=== PATIENT | female | born 1955 | race Caucasian/White ===

== ENCOUNTER 2019-11-09 09:46 | Outpatient (CLI) | payer OTHER, SELFPAY ==
--- NOTE | 2019-11-12 06:29 | WPDPFTINT ---
PFT Interpretation PFT Interpretation: DOS: 11/09/2019 REQUESTING: REASON FOR TESTING: post pulmonary rehab SIX MINUTE WALK This test was conducted per ATS guidelines. The initial saturation was 93% on 3 L/min pulse dose oxygen. The patient walked for 6 minutes with saturation decreasing to 85-86% for most of the walk. She stayed between 86% and 89% for 5 minutes which included part of the recovery time. At the end of recovery, saturation was 95%. Pulse ranged from 63 to 88 beats per minute. She did not stop to rest, completing 800 feet/243.8 meters. IMPRESSION: This post-pulmonary rehab 6 minute walk study desaturation to 85% while wearing 3 L/min pulse dose oxygen. Distance walked was 243 meters, less than expected per age. Clinical correlation is advised. Melanie Pelayo MD
== END 2019-11-09 09:47 | disposition home or self-care (01) ==
PROVIDERS: PCP Family Medicine
DX: J84.9 Interstitial pulmonary disease, unspecified (principal); I27.20 Pulmonary hypertension, unspecified; R09.02 Hypoxemia
CPT/HCPCS: 94618

== ENCOUNTER 2019-12-04 07:44 | Outpatient (CLI) | payer OTHER, SELFPAY ==
[2019-12-04 08:04] LABS: Hematocrit 44.8 % (37.0-47.0); Hemoglobin 14.4 g/dL (12.0-15.0); Mean Corpuscular HGB Conc 32.1 g/dl (32-36); Mean Corpuscular Hemoglobin 30.3 pg (26-34); Mean Corpuscular Volume 94.1 fl (80-100); Mean Platelet Volume 9.4 fl (7.4-10.4); Platelet Count Result 270 k/mm3 (150-375); Red Blood Count 4.76 M/mm3 (4.2-5.4); Red Cell Distribution Width 13.2 % (11.5-14.5); White Blood Count 6.1 K/mm3 (4.5-10.0)
[2019-12-04 08:18] LABS: Alanine Aminotransferase 15 U/L (4-35); Albumin Level 4.2 g/dL (3.5-5.1); Alkaline Phosphatase 86 U/L (38-126); Aspartate Amino Transferase 24 U/L (14-36); Bilirubin,Total 0.6 mg/dL (0.2-1.3); Blood Urea Nitrogen 9 mg/dL (7-17); CRP 0.6 mg/dL (<1.0); Calcium 9.4 mg/dL (8.4-10.2); Carbon Dioxide 31 mmol/L (22-30); Chloride 98 mmol/L (98-107); Estimated Glomerular Filt Rate > 60; Glucose 98 mg/dL (65-105); Potassium 4.4 mmol/L (3.4-5.0); Sodium 141 mmol/L (137-145)
== END 2019-12-04 07:45 | disposition home or self-care (01) ==
PROVIDERS: PCP Family Medicine; Referring Provider Family Medicine; Visit Provider Internal Medicine
DX: J84.9 Interstitial pulmonary disease, unspecified (principal); I27.20 Pulmonary hypertension, unspecified; M05.79 Rheumatoid arthritis with rheumatoid factor of multiple sites without organ or systems involvement
CPT/HCPCS: 36415; 80053; 85027; 86140

== ENCOUNTER 2020-01-18 10:40 | Outpatient (CLI) | payer OTHER, SELFPAY ==
--- NOTE | ~2020-01-18 | CT_ITS ---
EXAMINATION: CT chest wo con DATE: 01/18/2020 11:03 INDICATION: Chronic interstitial lung disease TECHNIQUE: Computed tomography (CT) of the chest was performed without intravenous contrast. The dose -length product (DLP) was 216.13 mGy-cm. Automated exposure control and iterative reconstruction tech [employer] were employed. COMPARISON: 03/07/2019 FINDINGS: Again noted are changes of right upper lobectomy. There are widespread subpleural reticular and groundglass opacities. There has been interval improvement in the left upper lobe. Areas of abdi ycombing are noted on the right. There is no pleural effusion or pneumothorax. No pathologically enla rged thoracic lymph nodes are identified. There is stable cardiomegaly.. There is calcified coronary artery atherosclerosis. There is moderate thoracic spondylosis. Again noted is mild chronic anterior wedging in multiple mid thoracic vertebral bodies. IMPRESSION: 1. Chronic interstitial lung disease in a pattern of usual interstitial pneumonia (UIP), with improve ment in the left upper lobe since the prior examination. Reviewed, dictated and finalized at location B. IMPRESSION: 1. Chronic interstitial lung disease in a pattern of usual interstitial pneumon ia (UIP), with improvement in the left upper lobe since the prior examination.
== END 2020-01-18 10:41 | disposition home or self-care (01) ==
PROVIDERS: PCP Family Medicine; Visit Provider Nurse Practitioner Family
DX: J84.9 Interstitial pulmonary disease, unspecified (principal)
CPT/HCPCS: 71250

== ENCOUNTER 2020-04-30 10:44 | Outpatient (CLI) | payer MEDICARE, SELFPAY ==
[2020-04-30 11:20] VITALS: PULSE 86; O2SAT 95
[2020-04-30 11:22] VITALS: PULSE 88; O2SAT 86
[2020-04-30 11:24] VITALS: O2SAT 87
[2020-04-30 11:26] VITALS: PULSE 88; O2SAT 91
[2020-04-30 11:35] VITALS: PULSE 82; O2SAT 95
--- NOTE | 2020-04-30 15:17 | HOMEO2EVAL ---
Home Oxygen Evaluation RC: Home Oxygen (O2) Evaluation Start: 04/30/20 15:12 Freq: Status: Active Protocol: RPE Activity Type Activity Date Activity User E-Sign Co-Sign Detail Recorded Client Recorded Date Recorded By Document 04/30/20 11:20 NASIR [id number] 04/30/20 15:16 NASIR Document 04/30/20 11:22 NASIR [email or web address] 04/30/20 15:16 NASIR Document 04/30/20 11:24 NASIR [email or web address] 04/30/20 15:16 NASIR Document 04/30/20 11:26 NASIR [email or web address] 04/30/20 15:16 NASIR Document 04/30/20 11:35 NASIR [email or web address] 04/30/20 15:16 NASIR 04/30/20 04/30/20 04/30/20 11:20 11:22 11:24 Home O2 Evaluation Test Phase Resting Exercise Exercise Oxygen Delivery Room Air Room Air Nasal Cannula Oxygen Flow Rate (L/min) 1 Pulse Oximetry (90-100 %) 95 86 L 87 L Pulse Rate (60-100 beats/min) 86 88 Home Oxygen Evaluation Comments Treatment Charges O2 Evaluation 04/30/20 04/30/20 11:26 11:35 Home O2 Evaluation Test Phase Exercise Resting Oxygen Delivery Nasal Cannula Room Air Oxygen Flow Rate (L/min) 2 Pulse Oximetry (90-100 %) 91 95 Pulse Rate (60-100 beats/min) 88 82 Home Oxygen Evaluation Comments PT REQUIRES 2 L O2 WITH ACTIVITY/ EXERTION Treatment Charges
--- NOTE | 2020-04-30 15:17 | PCRCNOTE ---
PT INITIALLY DID HOME O2 EVAL ON HER PORTABLE CONCENTRATOR UNIT THAT ONLY PROVIDES A PULSE DOSE. SHE WALKED FOR 2 MINUTES WITH PULSE DOSE SETTING AT 3 AND DESATS TO 86%. PT WAS THEN CHANGED OVER TO A CONTINUOUS FLOW TANK AT 2L AND STAYED AT 89-91% WHILE WALKING APPROX 4 MINUTES. HOME O2 EVAL WAS CHARTED USING 2L CONTINUOUS FLOW THIS IS THE BETTER OPTION FOR HER. PATIENT IS REQUESTING A DME THAT PROVIDES A PORTABLE CONCENTRATOR THAT PROVIDES A CONTINUOUS FLOW OPTION UP TO 2, THIS IS THE HOME O2 EQUIPMENT THAT SHE IS ACCUSTOMED TO USING.
== END 2020-04-30 10:45 | disposition home or self-care (01) ==
PROVIDERS: PCP Family Medicine; Visit Provider Nurse Practitioner Family
DX: R09.02 Hypoxemia (principal)
CPT/HCPCS: 94618

== ENCOUNTER 2020-05-27 09:00 | Outpatient (CLI) | payer MEDICARE, SELFPAY ==
[2020-05-27 09:23] LABS: Hematocrit 44.3 % (37.0-47.0); Hemoglobin 14.1 g/dL (12.0-15.0); Mean Corpuscular HGB Conc 31.8 g/dl (32-36); Mean Corpuscular Hemoglobin 30.1 pg (26-34); Mean Corpuscular Volume 94.7 fl (80-100); Mean Platelet Volume 9.5 fl (7.4-10.4); Platelet Count Result 276 k/mm3 (150-375); Red Blood Count 4.68 M/mm3 (4.2-5.4); Red Cell Distribution Width 13.4 % (11.5-14.5); White Blood Count 6.4 K/mm3 (4.5-10.0)
[2020-05-27 09:44] LABS: Alanine Aminotransferase 13 U/L (4-35); Albumin Level 4.2 g/dL (3.5-5.1); Alkaline Phosphatase 83 U/L (38-126); Anion Gap 6.8 mmol/L (7-16); Aspartate Amino Transferase 24 U/L (14-36); Bilirubin,Total 0.4 mg/dL (0.2-1.3); Blood Urea Nitrogen 8 mg/dL (7-17); CRP 0.7 mg/dL (<1.0); Carbon Dioxide 33 mmol/L (22-30); Chloride 104 mmol/L (98-107); Estimated Glomerular Filt Rate > 60; Glucose 96 mg/dL (65-105); Potassium 4.8 mmol/L (3.4-5.0); Sodium 139 mmol/L (137-145)
== END 2020-05-27 09:01 | disposition home or self-care (01) ==
LOC: ANHLAB 09:04
PROVIDERS: PCP Family Medicine; Visit Provider Internal Medicine
DX: M05.79 Rheumatoid arthritis with rheumatoid factor of multiple sites without organ or systems involvement (principal); J84.9 Interstitial pulmonary disease, unspecified; I27.20 Pulmonary hypertension, unspecified
CPT/HCPCS: 36415; 80053; 85027; 86140

== ENCOUNTER 2020-06-10 12:26 | Outpatient (CLI) | payer MEDICARE, SELFPAY ==
--- NOTE | 2020-06-11 14:50 | WPDPFTINT ---
PFT Interpretation PFT Interpretation: DOS: [ 06 10 2020] REQUESTING: Dr. Pelayo REASON FOR TESTING: ILD PULMONARY FUNCTION TESTS Results are reproducible and reliable. Spirometry: FEV1 46%, 1.02 L severely decreased. FVC 44% severely decreased. FEV 1% 76% normal. [id number] is 35% severely decreased and this increases by 37% with bronchodilator. Lung volumes: TLC 50% severely reduced. RV/TLC is increased 43% consistent with air trapping. Increased airway resistance. Diffusion: DLCO 35% severely reduced Flow volume loop: Restrictive pattern IMPRESSION: Severe restriction and obstruction. Severe restrictive ventilatory impairment with secondary obstructive process mainly in the small airways with good response to bronchodilator, air trapping, increased airway resistance and severe diffusion impairment. This pattern is consistent with interstitial lung disease and COPD overlap. These test results are very similar to a prior exam on to April 24, 2019. Melanie Pelayo MD
== END 2020-06-10 12:27 | disposition home or self-care (01) ==
PROVIDERS: PCP Family Medicine; Visit Provider Internal Medicine Critical Care Medicine
DX: J84.9 Interstitial pulmonary disease, unspecified (principal); R94.2 Abnormal results of pulmonary function studies
CPT/HCPCS: 94060; 94726; 94729

== ENCOUNTER → 2020-09-02 13:11 | Outpatient (CLI) | payer MEDICARE, SELFPAY ==
--- NOTE | ~2020-09-02 | MM_ITS ---
EXAMINATION: MM screening rylan BI w pietro HISTORY: Screening mammogram TECHNIQUE: Craniocaudal and mediolateral oblique 3-D tomosynthesis images were obtained and synthetic 2-D images were generated. CAD analysis was submitted and interpreted. COMPARISON: 08/22/2019, 02/18/2018, 01/09/2016 BREAST PARENCHYMAL COMPOSITION: The breasts are heterogeneously dense, which may obscure small masses . FINDINGS: Stable bilateral breast masses are again noted, consistent with benign findings. There is n o evidence of suspicious mass, calcification, or architectural distortion to suggest malignancy in ei ther breast. There has been no suspicious interval change. IMPRESSION: 1. No mammographic evidence of malignancy. 2. Recommend routine screening mammography in one year. BI-RADS Category 2: Benign finding(s). Reviewed, dictated and finalized at location A. RGROUND MINE MACHINERY MECHANIC
== END ==
PROVIDERS: PCP Family Medicine; Visit Provider Obstetrics & Gynecology
DX: Z12.31 Encounter for screening mammogram for malignant neoplasm of breast (principal)
CPT/HCPCS: 77063; 77067

== ENCOUNTER 2020-10-31 08:20 | Outpatient (CLI) | payer MEDICARE, SELFPAY ==
[2020-10-31 09:08] LABS: Hematocrit 45.3 % (37.0-47.0); Hemoglobin 14.7 g/dL (12.0-15.0); Mean Corpuscular HGB Conc 32.5 g/dl (32-36); Mean Corpuscular Hemoglobin 30.5 pg (26-34); Mean Platelet Volume 9.6 fl (7.4-10.4); Platelet Count Result 266 k/mm3 (150-375); Red Blood Count 4.82 M/mm3 (4.2-5.4); Red Cell Distribution Width 13.2 % (11.5-14.5); White Blood Count 6.9 K/mm3 (4.5-10.0)
[2020-10-31 09:10] LABS: Add Urine Microscopic? NO; Appearance Urine Clear (Clear); Bilirubin Urine Negative (Negative); Blood Urine Negative (Negative); Color Urine Yellow (Yellow); Glucose Urine UA Negative (Negative); Ketones Urine Negative (Negative); Leukocyte Esterase Ur Negative LEU/UL (NEGATIVE); Nitrate Urine Negative (Negative); Protein Urine Negative (Negative); Specific Grav Ur 1.017 (1.001-1.035); Urobilinogen Urine Negative mg/dL (<2.0)
[2020-10-31 09:26] LABS: Cholesterol 202 mg/dL (0-200); HDL Direct 49 mg/dL; Triglycerides 161 mg/dL (<150)
[2020-10-31 09:29] LABS: Alanine Aminotransferase 11 U/L (4-35); Albumin Level 4.1 g/dL (3.5-5.1); Alkaline Phosphatase 80 U/L (38-126); Anion Gap 4 mmol/L (8-16); Aspartate Amino Transferase 22 U/L (14-36); Bilirubin,Total 0.7 mg/dL (0.2-1.3); Blood Urea Nitrogen 10 mg/dL (7-17); CRP 0.6 mg/dL (<1.0); Calcium 9.3 mg/dL (8.4-10.2); Carbon Dioxide 34 mmol/L (22-30); Chloride 102 mmol/L (98-107); Estimated Glomerular Filt Rate > 60; Glucose 100 mg/dL (65-105); Potassium 4.3 mmol/L (3.4-5.0); Sodium 140 mmol/L (137-145)
[2020-10-31 09:40] LABS: LDL Cholesterol Direct 127 mg/dL
== END 2020-10-31 08:21 | disposition home or self-care (01) ==
PROVIDERS: PCP Family Medicine; Referring Provider Nurse Practitioner Family; Visit Provider Internal Medicine
DX: E78.00 Pure hypercholesterolemia, unspecified (principal); E78.2 Mixed hyperlipidemia; I10 Essential (primary) hypertension; J44.9 Chronic obstructive pulmonary disease, unspecified; M05.79 Rheumatoid arthritis with rheumatoid factor of multiple sites without organ or systems involvement; J84.9 Interstitial pulmonary disease, unspecified; I27.20 Pulmonary hypertension, unspecified
CPT/HCPCS: 36415; 80053; 80061; 81003; 84443; 85027; 86140

== ENCOUNTER 2020-12-08 15:04 | Inpatient (IN) | payer MEDICARE, SELFPAY ==
[2020-12-08] VITALS (9 sets, daily range): BP systolic 127–166; BP diastolic 69–88; PULSE 85–96; RESP 18–30; TEMP 36.4–37.6; O2SAT 81–97; BMI 34.8
--- NOTE | ~2020-12-08 | CT_ITS ---
EXAMINATION: CT chest high resolution wo nc DATE: 12/09/2020 10:38 INDICATION: Interstitial lung disease, shortness of breath TECHNIQUE: Computed tomography (CT) of the chest was performed without intravenous contrast. The dose -length product (DLP) was 334.48 mGy-cm. Automated exposure control and iterative reconstruction tech [employer] were employed. COMPARISON: 01/18/2020 FINDINGS: There are changes of right upper lobectomy. There are widespread subpleural reticular and g roundglass opacities with interval worsening. There is worsened honeycombing in the right lower lobe and worsening bronchiectasis in the left lower lobe. There is no pleural effusion or pneumothorax. Ca rdiomegaly is noted. There is calcified coronary artery atherosclerosis. No pathologically enlarged t horacic lymph nodes are identified. There is moderate thoracic spondylosis. IMPRESSION: 1. Chronic interstitial lung disease in a pattern of usual interstitial pneumonia with worsened subpl eural reticular and groundglass opacities which could reflect worsening interstitial lung disease and /or superimposed acute pneumonia. COVID 19 not excluded. 2. Worsened honeycombing in the right lower lobe and bronchiectasis of the left lower lobe. Reviewed, dictated and finalized at location A. GEMENT SUPERVISOR IMPRESSION: 1. Chronic interstitial lung disease in a pattern of usual interstitial pneumon ia with worsened subpleural reticular and groundglass opacities which could ref lect worsening interstitial lung disease and/or superimposed acute pneumonia. C OVID 19 not excluded. 2. Worsened honeycombing in the right lower lobe and bronchiectasis of the left lower lobe.
--- NOTE | ~2020-12-08 | XR_ITS ---
EXAMINATION: XR chest 1V portable EXAM DATE: 12/08/2020 16:35 INDICATION: Shortness of breath, cough for 10 days. History COPD and hypertension. TECHNIQUE: Portable AP frontal chest x-ray was obtained. Comparison is made to prior examination from 02/19/2019. FINDINGS: There is moderate amount of ill-defined bilateral airspace disease, more pronounced than on previous examination. Some portion of this is chronic interstitial lung disease, could be progressio n of this or superimposed acute infection or edema. There is no pneumothorax suspected. There are no pleural effusions. The cardiomediastinal silhouette is prominent but magnified on this AP technique. There are mild bony degenerative changes. IMPRESSION: Moderate amount of airspace disease with interval progression, could be acute infection or edema on chronic interstitial lung disease. Reviewed, dictated and finalized at location G. RAL LIMOUSINE DRIVER IMPRESSION: Moderate amount of airspace disease with interval progression, cou ld be acute infection or edema on chronic interstitial lung disease.
--- NOTE | 2020-12-08 16:11 | ECG_ITS ---
Measurements Intervals [place] Rate: 94 P: 23 CA: 135 QRS: 23 QRSD: 89 T: 4 QT: 319 QTc: 399 Interpretive Statements SINUS RHYTHM FREQUENT ATRIAL PREMATURE COMPLEXES NONSPECIFIC ST & T-WAVE ABNORMALITY- DIFFUSE LEADS BASELINE ARTIFACT- I, II, III, AVR, AVL, AVF, V3-V6 ABNORMAL ECG Electronically Signed On 12-08-2020 19:01:09 MEDICAL RADIATION TECH by Oni Graf D.O.
--- NOTE | 2020-12-08 16:24 | ED.GENADULT ---
HPI - General Adult General Chief complaint: Upper Respiratory Infection Stated complaint: fever, sinus congestion, low o2 sat Time Seen by Provider: 12/08/20 16:12 Source: patient History of Present Illness HPI narrative: Patient is a 65 y/o female complaining of moderate SOB for 10 days. She also has cough and fever. She states that she initially had nasal congestion and facial pain which resolved after receiving a course of Z-pack from her PCP. She has home O2 which she usually only uses with activity. She states that her pulse ox dropped to 80% while she was at rest this morning and applying O2 increased it to 90%. She was told by her doctor to come to ED for evaluation. Related Data Home Medications Medication Instructions Recorded Confirmed cholecalciferol (vitamin D3) 1,000 unit PO DAILY 08/29/19 12/08/20 methotrexate sodium 7.5 mg PO WEEKLY 08/29/19 12/08/20 metoprolol succinate 25 mg PO DAILY 08/29/19 12/08/20 folic acid 1 mg tablet 1 mg PO DAILY 09/25/19 12/08/20 guaifenesin 600 mg tablet, 600 mg PO DAILY 10/28/20 12/08/20 extended release 12 hr fluticasone propionate [Allergy 1 spray INTRANASAL Q12H PRN 12/08/20 12/08/20 Relief (fluticasone)] montelukast 10 mg PO DAILY 12/08/20 12/08/20 Allergies Allergy/AdvReac Type Severity Reaction Status Date / Time Penicillins Allergy Unknown UNKNOWN Verified 12/08/20 18:59 Review of Systems Constitutional: Constitutional: Denies chills, Denies fever(s), Denies headache(s) and Denies weakness Eyes: Eyes: Denies blurry vision ENT: Denies headache(s) and Denies neck pain Cardiovascular: Cardiovascular: Denies chest pain and Reports dyspnea Respiratory: Respiratory: Reports cough and Reports dyspnea Gastrointestinal: Gastrointestinal: Denies abdominal pain, Denies diarrhea, Denies nausea and Denies vomiting Genitourinary: Genitourinary: Denies hematuria and Denies dysuria Musculoskeletal: Musculoskeletal: Denies back pain and Denies neck pain Neurologic: Denies headache(s) and Denies weakness PMF Past Medical History Medical History Ascending aortic aneurysm Cough Decreased diffusion capacity Essential hypertension History of lung cancer History of tobacco abuse ILD (interstitial lung disease) Pure hypercholesterolemia Restrictive lung disease Family History Family History Sibling Cerebrovascular accident Family history of chronic obstructive pulmonary disease Family history of lung cancer Family history of coronary artery disease Hypertension Family history of diabetes mellitus in first degree relative Family history of malignant melanoma Father Family history of lung cancer Mother Family history of lung cancer Other Family history of congestive heart failure Social History Social History Smoking packs per day: 2 Smoking cigarettes per day: 40.0 Years smoked: 24 Smoking pack-years: 48.00 Smoking status: Former smoker Smoking end date: 10/24/06 Alcohol intake: never Substance use: never Substance use type: does not use Gender identity (if verbalized by the patient): Female Spiritual care concerns: No Exam Const: General: no acute distress and well developed Orientation/consciousness: oriented to person, oriented to place, oriented to time and patient oriented x3 HENMT: Head: normocephalic Ears: external ears normal General nose exam: Normal external nose present Eyes: General: appearance normal, both eyes and all related structures Conjunctivae: conjunctivae normal Neck: Neck: normal visual inspection and full ROM Chest: Chest palpation & inspection: normal inspection of the chest and no tenderness Resp: Effort & Inspection: normal respiratory effort Auscultation: clear to auscultation bilaterally Cardio: Rate: regular rate Rhythm: regular
[2020-12-08 16:33] LABS: Basophils Percent Auto 0.3 % (0.2-1.2); Eosinophils Percent Auto 0.4 % (0-4.4); Hematocrit 46.3 % (37.0-47.0); Hemoglobin 15.2 g/dL (12.0-15.0); Immature Granulocyte Absolute 0.02 K/mm3 (0.00-0.031); Immature Granulocyte Percent A 0.3 % (0-0.5); Lymphocytes Absolute Auto 1.33 K/mm3 (0.9-3.2); Lymphocytes Percent Auto 16.6 % (18.3-44.2); Mean Corpuscular HGB Conc 32.8 g/dl (32-36); Mean Corpuscular Hemoglobin 29.8 pg (26-34); Mean Corpuscular Volume 90.8 fl (80-100); Mean Platelet Volume 9.5 fl (7.4-10.4); Monocytes Absolute Auto 0.6 K/mm3 (0.1-0.6); Monocytes Percent Auto 7.5 % (2.6-8.5); Neutrophils Percent Auto 74.9 % (45.5-73.1); Platelet Count Result 206 k/mm3 (150-375); Red Cell Distribution Width 13.1 % (11.5-14.5)
[2020-12-08 16:37] LABS: Alveolar/Arterial O2 Gradient 94.9 mmHg; Base Excess ABG -1.8 mEq/l (+/-2.0); Fractional Inspired Oxygen 28 %; HCO3 ABG 22.7 mEq/l (22.0-26.0); Modified Allen's Test Pass; Oxygen Content ABG 19.7 %vol (16.0-22.0); Oxygen Saturation ABG 90.9 % (95.0-100.0); Oxyhemoglobin 91.1 % THb (90.0-100.0); PCO2 ABG 38.1 mmHg (35.0-45.0); PO2 ABG 59.8 mmHg (80.0-100.0); PO2 FiO2 Ratio Arterial Blood 2.14 %; Site Drawn RIGHT RADIAL; Total Hemoglobin 15.4 g/dL (12.0-18.0); pH ABG 7.393 (7.350-7.450)
[2020-12-08 16:38] LABS: Device NASAL CANNULA
[2020-12-08 16:49] LABS: Anion Gap 3 mmol/L (8-16); Blood Urea Nitrogen 9 mg/dL (7-17); Calcium 8.8 mg/dL (8.4-10.2); Carbon Dioxide 35 mmol/L (22-30); Chloride 99 mmol/L (98-107); Estimated Glomerular Filt Rate > 60; Glucose 113 mg/dL (65-105); Lactic Acid Reflex 1.4 mmol/L (0.7-2.1); Potassium 3.8 mmol/L (3.4-5.0); Sodium 137 mmol/L (137-145)
[2020-12-08] MEDS: DEXAMETHASONE SOD PHOS INJ 4 MG/ML VIAL 6 MG IV PUSH (17:12)
--- NOTE | 2020-12-08 18:46 | ADMGEN ---
This patient, Rachana Palomino, was admitted to [facility] Surg Room 303-01. Patient/family oriented to hospital policies and general routines including ID bracelet, bed and alarms, visiting hours, pain management, procedures, bathroom and other care routines, personal items, smoking policy, room service/diet, and visiting hours. Information on how to activate the Rapid Response Team has been discussed. Patient/Family are encouraged to report perceived risks to care and to ask questions if they do not understand what they are told or what they should do.
--- NOTE | 2020-12-08 23:05 | PCRCNOTE ---
PT WEARS CPAP AT HOME BUT DOES NOT WANT TO USE HOSPITAL EQUIPMENT AT THIS TIME. PT AWARE THAT SHE CAN CALL AT ANYTIME IF SHE CHANGES HER MIND.
--- NOTE | 2020-12-08 23:27 | PM.IMHP ---
H&P: HPI History of Present Illness Date/Time: 12/08/20 23:27 Chief Complaint: worsening shortness of breath Narrative: This is a 65 year old female with known Chronic respiratory failure on 2L of oxygen at home at all times, Chronic Interstitial Lung Disease, and HTN who presented to the hospital earlier today with a complaint of worsening exertional shortness of breath today. This morning she experienced a low pulse ox of 80% at rest. She states that she initially believed that she had a sinus infection about 10 days ago with facial pain, congestion and cough. She was treated with a full Z-pack by her Bowling Alley Attendant. The patient has not had any fevers, chills, chest pain, abdominal pain, wheezing, dysuria, hematuria, nausea, vomiting, diarrhea, or rectal bleeding. The patient was referred to the ER by her PCP. The patient was evaluated in the ER and placed on 4L of oxygen via NC. CXR demonstrated a moderate amount of airspace disease with interval progression. The patient has not had COVID-19 this year. She does report that 4 people at her temple tested positive for COVID-19 this week. The patient was swabbed for COVID-19 and admitted to the hospital. Review of Systems Review of Systems: All systems reviewed & are unremarkable except as noted in HPI and below PMFSH Past Medical History Medical History Ascending aortic aneurysm Cough Decreased diffusion capacity Essential hypertension History of lung cancer History of tobacco abuse ILD (interstitial lung disease) Pure hypercholesterolemia Restrictive lung disease Family History Family History Sibling Cerebrovascular accident Family history of chronic obstructive pulmonary disease Family history of lung cancer Family history of coronary artery disease Hypertension Family history of diabetes mellitus in first degree relative Family history of malignant melanoma Father Family history of lung cancer Mother Family history of lung cancer Other Family history of congestive heart failure Social History Social History Smoking packs per day: 2 Smoking cigarettes per day: 40.0 Years smoked: 24 Smoking pack-years: 48.00 Smoking status: Former smoker Smoking end date: 10/24/06 Alcohol intake: never Substance use: never Substance use type: does not use Gender identity (if verbalized by the patient): Female Spiritual care concerns: No Meds Home Medications and Allergies Home Medications Medication Instructions Recorded Confirmed Type cholecalciferol (vitamin D3) 1,000 unit PO DAILY 08/29/19 12/08/20 History methotrexate sodium 7.5 mg PO WEEKLY 08/29/19 12/08/20 History metoprolol succinate 25 mg PO DAILY 08/29/19 12/08/20 History folic acid 1 mg tablet 1 mg PO DAILY 09/25/19 12/08/20 History ipratropium 0.5 mg-albuterol 3 mg See Rx Instructions .ROUTE 09/17/20 12/08/20 Rx (2.5 mg base)/3 mL nebulization .COMPLEX PRN #270 ml soln amlodipine 5 mg tablet 5 mg PO DAILY #90 tablet 10/07/20 12/08/20 Rx guaifenesin 600 mg tablet, 600 mg PO DAILY 10/28/20 12/08/20 History extended release 12 hr azithromycin 250 mg tablet See Rx Instructions PO .COMPLEX #6 12/03/20 12/08/20 Rx tablet fluticasone propionate [Allergy 1 spray INTRANASAL Q12H PRN 12/08/20 12/08/20 History Relief (fluticasone)] montelukast 10 mg PO DAILY 12/08/20 12/08/20 History Allergies Allergy/AdvReac Type Severity Reaction Status Date / Time Penicillins Allergy Unknown UNKNOWN Verified 12/08/20 18:59 Vital Signs Vital Signs - 24 hr 12/08/20 15:42 12/08/20 16:13 12/08/20 17:10 Temperature 37.6 C Pulse Rate 94 96 92 Respiratory Rate 20 25 H 30 H Blood Pressure 145/71 H 166/79 H 163/88 H Pulse Oximetry 81 L 88 L 91 12/08/20 17:45 12/08/20 17:46 12/08/20 18:23 Temperature Puls
[2020-12-09] VITALS (11 sets, daily range): BP systolic 124–161; BP diastolic 70–86; PULSE 57–100; RESP 18–20; TEMP 36–37; O2SAT 90–97
[2020-12-09] MEDS: FOLIC ACID 1 MG TABLET PO ×2 (00:27→08:54)
[2020-12-09 06:11] LABS: Hematocrit 45.2 % (37.0-47.0); Hemoglobin 14.8 g/dL (12.0-15.0); Mean Corpuscular HGB Conc 32.7 g/dl (32-36); Mean Corpuscular Hemoglobin 29.6 pg (26-34); Mean Corpuscular Volume 90.4 fl (80-100); Mean Platelet Volume 9.7 fl (7.4-10.4); Platelet Count Result 201 k/mm3 (150-375); Red Cell Distribution Width 12.8 % (11.5-14.5)
[2020-12-09 06:42] LABS: Anion Gap 4 mmol/L (8-16); Blood Urea Nitrogen 12 mg/dL (7-17); Calcium 9.2 mg/dL (8.4-10.2); Carbon Dioxide 34 mmol/L (22-30); Chloride 101 mmol/L (98-107); Estimated CRCL calculation 104 ml/min; Estimated Glomerular Filt Rate > 60; Glucose 152 mg/dL (65-105); Potassium 4.3 mmol/L (3.4-5.0); Sodium 139 mmol/L (137-145)
[2020-12-09 06:44] LABS: Atypical Lymphocytes Present; Basophils Absolute Manual 0.03 K/mm3 (0.0-0.1); Basophils Percent Manual 1 % (0-1); Lymphocytes Absolute Manual 0.66 K/mm3 (1.1-4.5); Monocytes Absolute Manual 0.24 K/mm3 (0.1-0.90); Monocytes Percent Manual 8 % (3-9); Neutrophils Percent Manual 69 % (46-73); Platelet Estimate Adequate (Adequate); Smudge Cells PRESENT; Total Cells Counted 100
[2020-12-09 07:36] LABS: Alanine Aminotransferase 14 U/L (4-35); Alkaline Phosphatase 67 U/L (38-126); Aspartate Amino Transferase 54 U/L (14-36); CRP 4.4 mg/dL (<1.0); Lactate Dehydrogenase 697 U/L (313-618)
[2020-12-09 07:43] LABS: Erythrocyte Sedimentation Rate 33 mm/hr (0-20)
[2020-12-09] MEDS: LEVALBUTEROL HFA (*SP) 15 GM INHALER 2 PUFF INHALATION ×3 (08:29→20:39)
[2020-12-09] MEDS: amLODIPine BESYLATE 5 MG TABLET PO (08:53)
[2020-12-09] MEDS: guaiFENesin 12 HR 600 MG TABCR PO (08:54)
[2020-12-09] MEDS: CHOLECALCIFEROL 1,000 UNITS TABLET 1000 UNITS PO (08:54)
[2020-12-09] MEDS: METOPROLOL SUCCINATE EXT REL 25 MG TABCR PO (08:55)
[2020-12-09] MEDS: ENOXAPARIN 40 MG/0.4 ML SYRINGE SUB-Q (08:56)
[2020-12-09] MEDS: MONTELUKAST SODIUM 10 MG TABLET PO (08:56)
[2020-12-09] MEDS: DEXAMETHASONE SOD PHOS INJ 4 MG/ML VIAL 6 MG IV PUSH (08:57)
--- NOTE | 2020-12-09 12:33 | PM.CNPUL ---
Assessment and Plan Assessment and plan (1) ILD (interstitial lung disease): Code(s): J84.9 - Interstitial pulmonary disease, unspecified Status: Acute Assessment and Plan: - likely due to her rheumatoid arthritis. I do not see significant signs of COVID pneumonia at this stage. If SARS-CoV-2 is negative she can be discharged home with 3 L of oxygen per nasal cannula. - Would consider discontinuing dexamethasone for the time being and waiting for the results of her COVID test. She has a history of significant osteoporosis and prior hip fractures. (2) Chronic hypoxemic respiratory failure: Code(s): J96.11 - Chronic respiratory failure with hypoxia Status: Acute History of Present Illness History of Present Illness Consult date: 12/09/20 Chief complaint: acute hypoxic respiratory failure Narrative: This is a very pleasant 65-year-old female who was admitted yesterday with slightly increased shortness of breath and hypoxia. She is normally on 3 L of oxygen at home due to RA associated interstitial lung disease and felt a little bit more short of breath yesterday and presented to the emergency department where her O2 saturations were in the 80s without oxygen. She was placed on 2 L nasal cannula and oxygenation promptly went up to 92% according to the ER physician. Over the past 11 days she complained of some sinus congestion associated with pressure behind her left cheek bone and clear drainage from her nasal passages but no headaches, no fever, no night sweats, no loss of taste or smell And no productive cough. She was prescribed azithromycin for 5 days for a possible sinus infection and she said her sinus symptoms improved dramatically with that. Since being admitted yesterday there has been no significant change in her symptoms she feels well and is ready to go home. A chest x-ray showed bilateral interstitial and airspace opacities which may be all her interstitial lung disease. When I reviewed her CT scan from this admission with her CT scan from December 2019 there is very little if any difference she does have bibasilar honeycombing but also ground-glass opacities throughout the upper and lower lobes although more predominant in the lower lobes. The pattern is not subpleural exclusively and is deep into the parenchyma. Although there are slight increases in the ground-glass opacities in the left upper lobe this may be due to a slight technique difference in the CT scan as this one was a high-resolution and the one last year was not her ILD is thought to be due to rheumatoid arthritis although she says that her rheumatoid is well controlled with methotrexate 7.5 mg weekly which she takes on Sundays. Although methotrexate induced lung injury is possible it usually presents with an acute pneumonitis rather than pulmonary fibrosis and is not likely the culprit here. Given her constellation of findings in relative stability of chest imaging it is less likely that she has COVID induced pneumonia although her SARS-CoV-2 is pending. Of note she was exposed to some orthodox members who tested positive for COVID. Although at orthodox she admits to wearing a mask and social distancing. Review of Systems Review of Systems: All systems reviewed & are unremarkable except as noted in HPI and below PMFSH Past Medical History Medical History Ascending aortic aneurysm Cough Decreased diffusion capacity Essential hypertension History of lung cancer History of tobacco abuse ILD (interstitial lung disease) Pure hypercholesterolemia Restrictive lung disease Family History Family History Sibling Cerebrovascular accident Family history of chronic obstructive pulmonary disease Family history of lung cancer Family history of coronary artery disease Hypertension Family history of diabetes mellitus in first degree re
[2020-12-09 13:56] LABS: SARS-CoV-2 RNA PCR Positive
--- NOTE | 2020-12-09 15:33 | PM.IMPN ---
Progress Note: A&P Assessment and Plan (1) COVID-19: Code(s): U07.1 - COVID-19 Status: Acute Assessment and Plan: Patient had known exposure to COVID-19 to her taoist. She developed symptoms of nasal congestion November 28, 2020. She was feeling better after receiving a Z-Tom from her logistician. She then noticed worsening dyspnea on exertion and hypoxia while at home and then was told that multiple people at her charge had tested positive for COVID. Here she has been on 4 L via nasal cannula (chronically on 2 L at rest and 3 L with exertion at home) COVID test came back positive today to 12/09/2020 Pulmonology evaluated the patient and appreciate the recommendations She was started on IV dexamethasone on arrival and Pulmonology discontinued this because he did not believe it was COVID-19. Now that the results are positive for COVID will reassess pulmonology is recommendations, pending phone call. Continue albuterol inhaler, incentive spirometer Will continue on telemetry and continuous pulse ox due to hypoxia with exertion. Elevated ESR, CRP, Leukopenia, Slightly elevated AST, LDH due to COVID Continue monitoring. Conservative management. (2) Acute respiratory failure with hypoxia: Code(s): J96.01 - Acute respiratory failure with hypoxia Status: Acute Assessment and Plan: Acute on chronic respiratory failure. Baseline 2-3 L via nasal cannula. Acute worsening hypoxia is likely secondary to COVID-19 pneumonia vs COPD exacerbation vs bacterial pneumonia. The patient has already had a full course of azithromycin and has only worsened. Currently still on 4 L via nasal cannula and having hypoxia episodes with exertion Continue continuous pulse ox Continue supplementary oxygen. Pulmonology has been consulted. Appreciate Pulmonology input. (3) ILD (interstitial lung disease): Code(s): J84.9 - Interstitial pulmonary disease, unspecified Status: Acute Assessment and Plan: Continue bronchodilators and steroid therapy. Pulmonology has been consulted by ER provider. Appreciate Pulmonology input. (4) COPD (chronic obstructive pulmonary disease): Qualifiers: COPD type: unspecified COPD Qualified Code(s): J44.9 - Chronic obstructive pulmonary disease, unspecified Code(s): J44.9 - Chronic obstructive pulmonary disease, unspecified Status: Chronic Assessment and Plan: Continue bronchodilators and respiratory therapy. (5) Essential hypertension: Code(s): I10 - Essential (primary) hypertension Status: Acute Assessment and Plan: Blood pressure is slightly elevated 155/86 this morning. Monitor blood pressure. Continue amlodipine and metoprolol. (6) Rheumatoid arthritis: Qualifiers: Rheumatoid arthritis location: unspecified site Rheumatoid factor presence: with rheumatoid factor Qualified Code(s): M05.9 - Rheumatoid arthritis with rheumatoid factor, unspecified Code(s): M06.9 - Rheumatoid arthritis, unspecified Status: Chronic Assessment and Plan: Continue weekly methotrexate if the patient is still here next Tuesday. Time Spent With Patient Time with patient: 25 - 35 minutes Subjective Date/time seen: 12/09/20 15:33 Interval history: Date of service 12/09/2020: Patient reports continued nasal congestion, and some worsening shortness of breath with exertion. She is on 2 L of oxygen at home, 3 with exertion and currently she is on 4 L. she denies much change to her cough. She denies any fevers, chills, nausea, vomiting, abdominal pain, diarrhea, leg swelling, calf pain or any other symptoms at this time. Review of
[2020-12-09] MEDS: SALINE 0.65% NAS SOLN 44 ML BTL 1 SPRAY NASAL (18:00)
[2020-12-09] MEDS: SODIUM CHLORIDE NASAL GEL 14.1 GM 1 APPLIC NASAL (20:39)
[2020-12-09] MEDS: FLUTICASONE PROPIONATE 0.05% NA SPR 16 GM BTL (*BKC) 1 SPRAY NASAL (22:10)
[2020-12-10] VITALS (10 sets, daily range): BP systolic 124–145; BP diastolic 57–80; PULSE 55–95; RESP 16–20; TEMP 36–36.6; O2SAT 90–99
[2020-12-10] MEDS: LEVALBUTEROL HFA (*SP) 15 GM INHALER 2 PUFF INHALATION ×4 (03:00→20:59)
[2020-12-10] MEDS: MONTELUKAST SODIUM 10 MG TABLET PO (08:16)
[2020-12-10] MEDS: CHOLECALCIFEROL 1,000 UNITS TABLET 1000 UNITS PO (08:16)
[2020-12-10] MEDS: guaiFENesin 12 HR 600 MG TABCR PO (08:16)
[2020-12-10] MEDS: DEXAMETHASONE 2 MG TABLET 6 MG PO (08:16)
[2020-12-10] MEDS: amLODIPine BESYLATE 5 MG TABLET PO (08:16)
[2020-12-10] MEDS: ENOXAPARIN 40 MG/0.4 ML SYRINGE SUB-Q (08:16)
[2020-12-10] MEDS: FOLIC ACID 1 MG TABLET PO (08:16)
[2020-12-10] MEDS: METOPROLOL SUCCINATE EXT REL 25 MG TABCR PO (08:21)
--- NOTE | 2020-12-10 12:43 | PM.PNPUL ---
Progress Note: A&P Assessment and Plan (1) COVID-19: Code(s): U07.1 - COVID-19 Status: Acute Assessment and Plan: Her symptoms are very mild and I believe dexamethasone alone at this stage should be sufficient at 6 mg p.o. daily for 10 days. (2) Chronic hypoxemic respiratory failure: Code(s): J96.11 - Chronic respiratory failure with hypoxia Status: Acute Assessment and Plan: This is likely due to her underlying interstitial lung disease related to rheumatoid arthritis and has likely been progressing slowly. (3) Acute respiratory failure with hypoxia: Code(s): J96.01 - Acute respiratory failure with hypoxia Status: Acute Assessment and Plan: Continue titrating oxygen to maintain saturations of 88% or better. She will need a new home oxygen assessment prior to discharge and she may very well require higher doses of oxygen then she was previously used to. (4) ILD (interstitial lung disease): Code(s): J84.9 - Interstitial pulmonary disease, unspecified Status: Acute (5) Rheumatoid arthritis: Qualifiers: Rheumatoid arthritis location: unspecified site Rheumatoid factor presence: with rheumatoid factor Qualified Code(s): M05.9 - Rheumatoid arthritis with rheumatoid factor, unspecified Code(s): M06.9 - Rheumatoid arthritis, unspecified Status: Chronic Assessment and Plan: I would recommend holding her methotrexate for now and this can be restarted on December 21, 2020 (6) COPD (chronic obstructive pulmonary disease): Qualifiers: COPD type: unspecified COPD Qualified Code(s): J44.9 - Chronic obstructive pulmonary disease, unspecified Code(s): J44.9 - Chronic obstructive pulmonary disease, unspecified Status: Chronic Assessment and Plan: She likely has some obstructive airway disease given her long smoking history and clinical response to bronchodilators. Will start her on Symbicort 160/4.5 mcg 2 puffs q.12 hours with a spacer device. Continue as needed albuterol q.4 hours. Subjective Date/time seen: 12/10/20 12:43 Interval history: Her SARS-CoV-2 Came back positive yesterday. I still believe that the majority of her symptoms are due to her underlying interstitial lung disease related to rheumatoid arthritis. She may also have some underlying obstructive airway disease given her significant smoking history. This is very difficult to curing pickling packer on pulmonary function test when someone has a restrictive lung disease. She does admit that her O2 saturations dropped to about 80% on exertion for the past year to year and a half. She feels well today but she is a bit concerned that she is requiring more oxygen now that she has at home. She is currently on 4 L and she is normally on 2 L at home but it is difficult to know whether she was under oxygenating at home even prior to her admission. Review of Systems Review of Systems: All systems reviewed & are unremarkable except as noted in HPI and below Exam Const: General: cooperative, healthy appearing, comfortable, no acute distress, well developed, alert, awake and Physically active HENMT: Head: normal to inspection, normocephalic and atraumatic Eyes: General: appearance normal, both eyes and all related structures Neck: Neck: trachea midline and supple Resp: Effort & Inspection: normal respiratory effort and able to speak in complete sentences Auscultation: crackles and diminished lung sounds GI: Inspection: normal to inspection Auscultation: normal bowel sounds Skin: General skin exam: normal color and no rashes or lesions noted Neuro: General: oriented to person and oriented to place Cognition (Neuro): normal cognition Speech: normal speech Extrem: General: normal to inspection and no clubbing, cyanosis or edema Psych: Appearance: grossly normal and well kempt Mental Status: mental status grossly normal Objective Data Vital Sig
--- NOTE | 2020-12-10 15:31 | PM.IMPN ---
Progress Note: A&P Assessment and Plan (1) COVID-19: Code(s): U07.1 - COVID-19 Status: Acute Assessment and Plan: Patient had known exposure to COVID-19 to her rastafarian. She developed symptoms of nasal congestion November 28, 2020. She was feeling better after receiving a Z-Tom from her mechanic senior. She then noticed worsening dyspnea on exertion and hypoxia while at home and then was told that multiple people at her charge had tested positive for COVID. Here she has been on 4 L via nasal cannula (chronically on 2 L at rest and 3 L with exertion at home) COVID test came back positive today to 12/09/2020 Pulmonology evaluated the patient and appreciate the recommendations Continue IV dexamethasone patient is outside of the window for Remdesivir Continue albuterol inhalers, incentive spirometer Talked to the mechanic senior who recommends to continue monitoring her for 1-2 more days to ensure her respiratory status is not become worse due to COVID Continuous pulse ox due to hypoxia with exertion. Will discontinue the telemetry portion Elevated ESR, CRP, Leukopenia, Slightly elevated AST, LDH due to COVID Continue monitoring. Conservative management. (2) Acute respiratory failure with hypoxia: Code(s): J96.01 - Acute respiratory failure with hypoxia Status: Acute Assessment and Plan: Acute on chronic respiratory failure. Baseline 2-3 L via nasal cannula. Acute worsening hypoxia is likely secondary to COVID-19 pneumonia vs COPD exacerbation vs bacterial pneumonia. The patient has already had a full course of azithromycin and has only worsened. Currently still on 4 L via nasal cannula and having hypoxia episodes with exertion Continue continuous pulse ox Continue supplementary oxygen. Pulmonology has been consulted. Appreciate Pulmonology input. (3) ILD (interstitial lung disease): Code(s): J84.9 - Interstitial pulmonary disease, unspecified Status: Acute Assessment and Plan: Continue bronchodilators and steroid therapy. Pulmonology has been consulted by ER provider. Appreciate Pulmonology input. (4) COPD (chronic obstructive pulmonary disease): Qualifiers: COPD type: unspecified COPD Qualified Code(s): J44.9 - Chronic obstructive pulmonary disease, unspecified Code(s): J44.9 - Chronic obstructive pulmonary disease, unspecified Status: Chronic Assessment and Plan: Continue bronchodilators and respiratory therapy. (5) Essential hypertension: Code(s): I10 - Essential (primary) hypertension Status: Acute Assessment and Plan: Blood pressure stable at 135/61 this morning. Monitor blood pressure. Continue amlodipine and metoprolol. (6) Rheumatoid arthritis: Qualifiers: Rheumatoid arthritis location: unspecified site Rheumatoid factor presence: with rheumatoid factor Qualified Code(s): M05.9 - Rheumatoid arthritis with rheumatoid factor, unspecified Code(s): M06.9 - Rheumatoid arthritis, unspecified Status: Chronic Assessment and Plan: Continue weekly methotrexate if the patient is still here next Tuesday. Time Spent With Patient Time with patient: 25 - 35 minutes Subjective Date/time seen: 12/10/20 15:31 Interval history: Date of service 12/10/2020: She reports feeling tired today, but she did a lot, walked with PT/OT, took a bath, sitting up in the chair and now she is about to take a nap. At rest her breathing is stable, but with any exertion she desats. She has been coughing and has clear sputum production. She still has some nasal congestion and sinus pressure, but everything is clear when she blows her no
[2020-12-10] MEDS: FLUTICASONE PROPIONATE 0.05% NA SPR 16 GM BTL (*BKC) 1 SPRAY NASAL (20:59)
[2020-12-10] MEDS: SODIUM CHLORIDE NASAL GEL 14.1 GM 1 APPLIC NASAL (20:59)
[2020-12-11] VITALS (18 sets, daily range): BP systolic 118–158; BP diastolic 55–82; PULSE 54–92; RESP 18–20; TEMP 36.1–36.7; O2SAT 84–99
[2020-12-11] MEDS: LEVALBUTEROL HFA (*SP) 15 GM INHALER 2 PUFF INHALATION ×4 (03:27→22:05)
[2020-12-11 06:26] LABS: Hemoglobin 12.9 g/dL (12.0-15.0); Mean Corpuscular HGB Conc 32.3 g/dl (32-36); Mean Corpuscular Hemoglobin 29.4 pg (26-34); Mean Corpuscular Volume 91.1 fl (80-100); Mean Platelet Volume 10.2 fl (7.4-10.4); Platelet Count Result 243 k/mm3 (150-375); Red Blood Count 4.39 M/mm3 (4.2-5.4); Red Cell Distribution Width 12.8 % (11.5-14.5); White Blood Count 8.7 K/mm3 (4.5-10.0)
[2020-12-11 06:47] LABS: Alanine Aminotransferase 13 U/L (4-35); Albumin Level 3.5 g/dL (3.5-5.1); Alkaline Phosphatase 57 U/L (38-126); Anion Gap 0 mmol/L (8-16); Aspartate Amino Transferase 24 U/L (14-36); Bilirubin,Total 0.4 mg/dL (0.2-1.3); Blood Urea Nitrogen 16 mg/dL (7-17); CRP 1.3 mg/dL (<1.0); Calcium 8.9 mg/dL (8.4-10.2); Carbon Dioxide 38 mmol/L (22-30); Chloride 99 mmol/L (98-107); Estimated CRCL calculation 88 ml/min; Estimated Glomerular Filt Rate > 60; Glucose 110 mg/dL (65-105); Lactate Dehydrogenase 572 U/L (313-618); Potassium 4.3 mmol/L (3.4-5.0); Sodium 137 mmol/L (137-145)
[2020-12-11] MEDS: CHOLECALCIFEROL 1,000 UNITS TABLET 1000 UNITS PO (09:18)
[2020-12-11] MEDS: FOLIC ACID 1 MG TABLET PO (09:18)
[2020-12-11] MEDS: guaiFENesin 12 HR 600 MG TABCR PO (09:18)
[2020-12-11] MEDS: MONTELUKAST SODIUM 10 MG TABLET PO (09:18)
[2020-12-11] MEDS: DEXAMETHASONE 2 MG TABLET 6 MG PO (09:18)
[2020-12-11] MEDS: ENOXAPARIN 40 MG/0.4 ML SYRINGE SUB-Q (09:18)
[2020-12-11] MEDS: amLODIPine BESYLATE 5 MG TABLET PO (09:18)
[2020-12-11] MEDS: METOPROLOL SUCCINATE EXT REL 25 MG TABCR PO (09:19)
--- NOTE | 2020-12-11 10:15 | PM.PNPUL ---
Progress Note: A&P Assessment and Plan (1) COVID-19: Code(s): U07.1 - COVID-19 Status: Acute Assessment and Plan: Her symptoms are very mild and I believe dexamethasone alone at this stage should be sufficient at 6 mg p.o. daily for 10 days. (2) Chronic hypoxemic respiratory failure: Code(s): J96.11 - Chronic respiratory failure with hypoxia Status: Acute Assessment and Plan: This is likely due to her underlying interstitial lung disease related to rheumatoid arthritis and has likely been progressing slowly. (3) Acute respiratory failure with hypoxia: Code(s): J96.01 - Acute respiratory failure with hypoxia Status: Acute Assessment and Plan: Continue titrating oxygen to maintain saturations of 88% or better. She will need a new home oxygen assessment prior to discharge and she may very well require higher doses of oxygen then she was previously used to. (4) ILD (interstitial lung disease): Code(s): J84.9 - Interstitial pulmonary disease, unspecified Status: Acute (5) Rheumatoid arthritis: Qualifiers: Rheumatoid arthritis location: unspecified site Rheumatoid factor presence: with rheumatoid factor Qualified Code(s): M05.9 - Rheumatoid arthritis with rheumatoid factor, unspecified Code(s): M06.9 - Rheumatoid arthritis, unspecified Status: Chronic Assessment and Plan: I would recommend holding her methotrexate for now and this can be restarted on December 21, 2020 (6) COPD (chronic obstructive pulmonary disease): Qualifiers: COPD type: unspecified COPD Qualified Code(s): J44.9 - Chronic obstructive pulmonary disease, unspecified Code(s): J44.9 - Chronic obstructive pulmonary disease, unspecified Status: Chronic Assessment and Plan: She likely has some obstructive airway disease given her long smoking history and clinical response to bronchodilators. continue Symbicort 160/4.5 mcg 2 puffs q.12 hours with a spacer device. Continue as needed albuterol q.4 hours. Subjective Date/time seen: 12/11/20 10:15 Interval history: She is doing well and her oxygenation is maintaining with 2-4 L per nasal cannula. Her appetite is good she is not more short of breath than normal. Yesterday Symbicort was added for the probability of underlying obstructive airway disease. She has mild COVID but I believe the predominance of her symptoms are due to underlying interstitial lung disease. She unfortunately was out of the time window for monoclonal antibody consideration. Review of Systems Review of Systems: All systems reviewed & are unremarkable except as noted in HPI and below Exam Const: General: cooperative, healthy appearing, comfortable, no acute distress, well developed, alert, awake and Physically active HENMT: Head: normal to inspection, normocephalic and atraumatic Eyes: General: appearance normal, both eyes and all related structures Neck: Neck: trachea midline and supple Resp: Effort & Inspection: normal respiratory effort and able to speak in complete sentences Auscultation: crackles and diminished lung sounds GI: Inspection: normal to inspection Auscultation: normal bowel sounds Skin: General skin exam: normal color and no rashes or lesions noted Neuro: General: oriented to person and oriented to place Cognition (Neuro): normal cognition Speech: normal speech Extrem: General: normal to inspection and no clubbing, cyanosis or edema Psych: Appearance: grossly normal and well kempt Mental Status: mental status grossly normal Objective Data Vital Signs Vital Signs: Vital Signs - 24 hr 12/10/20 10:25 12/10/20 12:00 12/10/20 16:00 Temperature 36.3 C L 36.3 C L Pulse Rate 90 73 95 Respiratory Rate 18 16 Blood Pressure 128/64 127/61 Pulse Oximetry 95 96 95 12/10/20 17:00 12/10/20 20:00 12/11/20 00:00 Temperature 36.2 C L 36.6 C Pulse Rate 64 67 Respirato
--- NOTE | 2020-12-11 13:14 | PCRCNOTE ---
Addendum entered by Allison Henry, SSIS SSRS DEVELOPER 12/11/20 14:50: PT WAS ABLE TO WALK FURTHER THIS AFTERNOON AND HER NEEDS INCREASED TO 4 L WITH ACTIVITY Original Note: HOME O2 EVAL COMPLETE, PT'S REQUIREMENTS HAVE NOT CHANGED FROM HOME SETTINGS. ROOM AIR AT REST AND 2 LITERS WITH ACTIVITY. PT. HAS HER HOME CONCENTRATOR HERE AND CHARGED FOR HER DISCHARGE.
--- NOTE | 2020-12-11 14:47 | HOMEO2EVAL ---
Home Oxygen Evaluation RC: Home Oxygen (O2) Evaluation Start: 12/11/20 10:48 Freq: ONCE Status: Active Protocol: RPE Activity Type Activity Date Activity User E-Sign Co-Sign Detail Recorded Client Recorded Date Recorded By Document 12/11/20 12:35 [email or web address] [email or web address] 12/11/20 13:14 DJO Document 12/11/20 12:40 [email or web address] [email or web address] 12/11/20 13:14 DJO Document 12/11/20 12:45 [email or web address] [email or web address] 12/11/20 13:14 DJO Document 12/11/20 12:50 [email or web address] [email or web address] 12/11/20 13:14 DJO Document 12/11/20 13:00 [email or web address] [email or web address] 12/11/20 13:14 DJO Document 12/11/20 13:05 [email or web address] [email or web address] 12/11/20 14:47 DJO Document 12/11/20 13:15 [email or web address] [email or web address] 12/11/20 14:47 DJO 12/11/20 12/11/20 12/11/20 12:35 12:40 12:45 Home O2 Evaluation Test Phase Resting Exercise Exercise Oxygen Delivery Room Air Room Air Nasal Cannula Oxygen Flow Rate (L/min) 1 Pulse Oximetry (90-100 %) 90 84 L 85 L Pulse Rate (60-100 beats/min) 68 77 82 Treatment Charges O2 Evaluation - Inpatient 12/11/20 12/11/20 12/11/20 12:50 13:00 13:05 Home O2 Evaluation Test Phase Exercise Exercise Exercise Oxygen Delivery Nasal Cannula Nasal Cannula Nasal Cannula Oxygen Flow Rate (L/min) 2 3 4 Pulse Oximetry (90-100 %) 87 L 88 L 90 Pulse Rate (60-100 beats/min) 89 90 92 Treatment Charges 12/11/20 13:15 Home O2 Evaluation Test Phase Resting Oxygen Delivery Room Air Oxygen Flow Rate (L/min) Pulse Oximetry (90-100 %) 90 Pulse Rate (60-100 beats/min) 69 Treatment Charges
--- NOTE | 2020-12-11 16:30 | PM.IMPN ---
Progress Note: A&P Assessment and Plan (1) COVID-19: Code(s): U07.1 - COVID-19 Status: Acute Assessment and Plan: Patient had known exposure to COVID-19 to her presybeterian. She developed symptoms of nasal congestion November 28, 2020. She was feeling better after receiving a Z-Tom from her teaching supervisor. She then noticed worsening dyspnea on exertion and hypoxia while at home and then was told that multiple people at her charge had tested positive for COVID. Chronically on 2 L at rest and 3 L with exertion at home- Home oxygen evaluation today stated she should be on room air at rest and 4L with exertion, but looking at her in bed currently having some shortness of breath with just movement and on 2.5L I feel like she would need some oxygen at rest. COVID test came back positive 12/09/2020 Pulmonology evaluated the patient and appreciate the recommendations Continue PO dexamethasone. Patient is outside of the window for Remdesivir Continue albuterol inhalers, incentive spirometer Talked to the teaching supervisor who recommends to continue monitoring her for 1-2 more days to ensure her respiratory status is not become worse due to COVID Will D/C Continuous Pulse Ox and Tele Elevated ESR, CRP, Leukopenia, Slightly elevated AST, LDH due to COVID Continue monitoring. Conservative management. (2) Acute respiratory failure with hypoxia: Code(s): J96.01 - Acute respiratory failure with hypoxia Status: Acute Assessment and Plan: Acute on chronic respiratory failure. Baseline 2-3 L via nasal cannula. Acute worsening hypoxia is likely secondary to COVID-19 pneumonia vs COPD exacerbation vs bacterial pneumonia. The patient has already had a full course of azithromycin and has only worsened. Currently on 2 L via nasal cannula and having hypoxia episodes with exertion Continue continuous pulse ox Continue supplementary oxygen. Pulmonology has been consulted. Appreciate Pulmonology input. (3) ILD (interstitial lung disease): Code(s): J84.9 - Interstitial pulmonary disease, unspecified Status: Acute Assessment and Plan: Continue bronchodilators and steroid therapy. Pulmonology has been consulted by ER provider. Appreciate Pulmonology input. (4) COPD (chronic obstructive pulmonary disease): Qualifiers: COPD type: unspecified COPD Qualified Code(s): J44.9 - Chronic obstructive pulmonary disease, unspecified Code(s): J44.9 - Chronic obstructive pulmonary disease, unspecified Status: Chronic Assessment and Plan: Continue bronchodilators and respiratory therapy. (5) Essential hypertension: Code(s): I10 - Essential (primary) hypertension Status: Acute Assessment and Plan: Blood pressure stable at 135/74 this morning. Monitor blood pressure. Continue amlodipine and metoprolol. (6) Rheumatoid arthritis: Qualifiers: Rheumatoid arthritis location: unspecified site Rheumatoid factor presence: with rheumatoid factor Qualified Code(s): M05.9 - Rheumatoid arthritis with rheumatoid factor, unspecified Code(s): M06.9 - Rheumatoid arthritis, unspecified Status: Chronic Assessment and Plan: Continue weekly methotrexate if the patient is still here next Tuesday. Time Spent With Patient Time with patient: 25 - 35 minutes Subjective Date/time seen: 12/11/20 16:30 Interval history: Date of Service 12/11/20: She is doing well but her oxygen still drops in the 70's with exertion. She is getting a productive cough and her congestion is resolving. She is concerned about going home alone to take care of herself with her oxygen dropping significantly.
[2020-12-11] MEDS: SODIUM CHLORIDE NASAL GEL 14.1 GM 1 APPLIC NASAL (22:05)
[2020-12-12] VITALS (16 sets, daily range): BP systolic 130–151; BP diastolic 66–86; PULSE 58–101; RESP 18; TEMP 36.4–37.1; O2SAT 82–99
[2020-12-12] MEDS: LEVALBUTEROL HFA (*SP) 15 GM INHALER 2 PUFF INHALATION ×4 (03:38→20:38)
[2020-12-12] MEDS: DEXAMETHASONE 2 MG TABLET 6 MG PO (09:27)
[2020-12-12] MEDS: CHOLECALCIFEROL 1,000 UNITS TABLET 1000 UNITS PO (09:27)
[2020-12-12] MEDS: FOLIC ACID 1 MG TABLET PO (09:27)
[2020-12-12] MEDS: ENOXAPARIN 40 MG/0.4 ML SYRINGE SUB-Q (09:27)
[2020-12-12] MEDS: MONTELUKAST SODIUM 10 MG TABLET PO (09:27)
[2020-12-12] MEDS: guaiFENesin 12 HR 600 MG TABCR PO (09:28)
[2020-12-12] MEDS: METOPROLOL SUCCINATE EXT REL 25 MG TABCR PO (09:28)
[2020-12-12] MEDS: amLODIPine BESYLATE 5 MG TABLET PO (09:28)
--- NOTE | 2020-12-12 12:27 | PM.PNPUL ---
Progress Note: A&P Assessment and Plan (1) COVID-19: Code(s): U07.1 - COVID-19 Status: Acute Assessment and Plan: Her symptoms are very mild and I believe dexamethasone alone at this stage should be sufficient at 6 mg p.o. daily for 10 days. (2) Chronic hypoxemic respiratory failure: Code(s): J96.11 - Chronic respiratory failure with hypoxia Status: Acute Assessment and Plan: This is likely due to her underlying interstitial lung disease related to rheumatoid arthritis and has likely been progressing slowly. (3) Acute respiratory failure with hypoxia: Code(s): J96.01 - Acute respiratory failure with hypoxia Status: Acute Assessment and Plan: Continue titrating oxygen to maintain saturations of 88% or better. She will need a new home oxygen assessment prior to discharge and she may very well require higher doses of oxygen then she was previously used to. (4) ILD (interstitial lung disease): Code(s): J84.9 - Interstitial pulmonary disease, unspecified Status: Acute (5) Rheumatoid arthritis: Qualifiers: Rheumatoid arthritis location: unspecified site Rheumatoid factor presence: with rheumatoid factor Qualified Code(s): M05.9 - Rheumatoid arthritis with rheumatoid factor, unspecified Code(s): M06.9 - Rheumatoid arthritis, unspecified Status: Chronic Assessment and Plan: I would recommend holding her methotrexate for now and this can be restarted on December 21, 2020 (6) COPD (chronic obstructive pulmonary disease): Qualifiers: COPD type: unspecified COPD Qualified Code(s): J44.9 - Chronic obstructive pulmonary disease, unspecified Code(s): J44.9 - Chronic obstructive pulmonary disease, unspecified Status: Chronic Assessment and Plan: She likely has some obstructive airway disease given her long smoking history and clinical response to bronchodilators. continue Symbicort 160/4.5 mcg 2 puffs q.12 hours with a spacer device. Continue as needed albuterol q.4 hours. Additional Plan Can be discharged home to finish 10 day course of dexamethasone, continue Symbicort and Ventolin. HRCT of the chest for three months has been ordered and f/u with our pulmonary office in 4-6 weeks. Subjective Date/time seen: 12/12/20 12:27 Interval history: She is feeling much better today and is currently on 2 L oxygen per nasal cannula. From my point of view she can be discharged home and follow up with us in 4-6 weeks Review of Systems Review of Systems: All systems reviewed & are unremarkable except as noted in HPI and below Exam Const: General: cooperative, healthy appearing, comfortable, no acute distress, well developed, alert, awake and Physically active HENMT: Head: normal to inspection, normocephalic and atraumatic Eyes: General: appearance normal, both eyes and all related structures Neck: Neck: trachea midline and supple Resp: Effort & Inspection: normal respiratory effort and able to speak in complete sentences Auscultation: crackles and diminished lung sounds GI: Inspection: normal to inspection Auscultation: normal bowel sounds Skin: General skin exam: normal color and no rashes or lesions noted Neuro: General: oriented to person and oriented to place Cognition (Neuro): normal cognition Speech: normal speech Extrem: General: normal to inspection and no clubbing, cyanosis or edema Psych: Appearance: grossly normal and well kempt Mental Status: mental status grossly normal Objective Data Vital Signs Vital Signs: Vital Signs - 24 hr 12/11/20 12:35 12/11/20 12:40 12/11/20 12:45 Temperature Pulse Rate 68 77 82 Respiratory Rate Blood Pressure Pulse Oximetry 90 84 L 85 L 12/11/20 12:50 12/11/20 13:00 12/11/20 13:05 Temperature Pulse Rate 89 90 92 Respiratory Rate Blood Pressure Pulse Oximetry 87 L 88 L 90 12/11/20 13:15 12/11/20 16:00
--- NOTE | 2020-12-12 15:09 | HOMEO2EVAL ---
Home Oxygen Evaluation RC: Home Oxygen (O2) Evaluation Start: 12/12/20 09:14 Freq: ONCE Status: Active Protocol: RPE Activity Type Activity Date Activity User E-Sign Co-Sign Detail Recorded Client Recorded Date Recorded By Document 12/12/20 14:30 NASIR [email or web address] 12/12/20 15:09 NASIR Document 12/12/20 14:33 NASIR [email or web address] 12/12/20 15:09 NASIR Document 12/12/20 14:35 NASIR [email or web address] 12/12/20 15:09 NASIR Document 12/12/20 14:37 NASIR [email or web address] 12/12/20 15:09 NASIR Document 12/12/20 14:39 NASIR [email or web address] 12/12/20 15:09 NASIR Document 12/12/20 14:42 NASIR [email or web address] 12/12/20 15:09 NASIR Document 12/12/20 14:45 NASIR [email or web address] 12/12/20 15:09 NASIR Document 12/12/20 15:00 [email or web address] [email or web address] 12/12/20 15:09 NASIR 12/12/20 12/12/20 12/12/20 14:30 14:33 14:35 Home O2 Evaluation Test Phase Resting Resting Exercise Oxygen Delivery Room Air Nasal Cannula Nasal Cannula Oxygen Flow Rate (L/min) 2 2 Pulse Oximetry (90-100 %) 87 L 90 82 L Pulse Rate (60-100 beats/min) Home Oxygen Evaluation Comments Treatment Charges O2 Evaluation - Inpatient 12/12/20 12/12/20 12/12/20 14:37 14:39 14:42 Home O2 Evaluation Test Phase Exercise Exercise Exercise Oxygen Delivery Nasal Cannula Nasal Cannula Nasal Cannula Oxygen Flow Rate (L/min) 3 4 5 Pulse Oximetry (90-100 %) 83 L 85 L 87 L Pulse Rate (60-100 beats/min) 101 H Home Oxygen Evaluation Comments PT UP IN ROOM WALKING TO DOOR AND BACK Treatment Charges 12/12/20 12/12/20 14:45 15:00 Home O2 Evaluation Test Phase Exercise Resting Oxygen Delivery Nasal Cannula Nasal Cannula Oxygen Flow Rate (L/min) 6 2 Pulse Oximetry (90-100 %) 90 92 Pulse Rate (60-100 beats/min) 86 Home Oxygen Evaluation Comments PT REQUIRES 2 L AT REST AND 6 L WITH ACTIVITY Treatment Charges
--- NOTE | 2020-12-12 15:10 | PCRCNOTE ---
HOME O2 EVAL COMPLETED. THIS IS THE 3RD EVAL DONE WITH THIS PT. PT STATED THAT PRIOR TO ADMISSION, SHE WAS ON ROOM AIR AT REST, ONLY NEEDING O2 WITH EXERTION. PT FIRST HOME O2 EVAL DIDNT REQUIRES O2 WITH REST. 2ND EVAL INCREASED NEED TO 2 REST AND 4 WITH EXERTION. THIRD EVAL IS 2 REST AND 6 WITH EXERTION. 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 PT WAS SOB. DROPPED TO 87-88 ON 6 L. THIS IS ALOT OF EXERTION, AT HOME I ENCOURAGE HER TO TAKE BREAKS, TURN UP THE O2 PRIOR TO ANY EXERTION. PT IS FAMILIAR WITH O2, SHE IS FAMILIAR WITH TITRATING FOR SOB, SHE HAS A PULSE OXIMETER WITH HER. SHE ALSO HAS A POC WITH HER FOR TRANSPORT HOME. HER DME IS [facility]ARE. PHONE # I HAVE FAXED A NEW EVAL/ORDER/FACE TO FACE NOTES/DEMOGRAPHICS TO THEM TO SHOW INCREASED NEED, THEY WILL BE IN CONTACT WITH HER TO ENSURE ALL HOME O2 EQUIPMENT IS MEETING NEEDS.
--- NOTE | 2020-12-12 15:36 | PM.IMPN ---
Progress Note: A&P Assessment and Plan (1) COVID-19: Code(s): U07.1 - COVID-19 Status: Acute Assessment and Plan: Patient had known exposure to COVID-19 to her tenriism. She developed symptoms of nasal congestion November 28, 2020. She was feeling better after receiving a Z-Tom from her finance and administration manager. She then noticed worsening dyspnea on exertion and hypoxia while at home and then was told that multiple people at her charge had tested positive for COVID. Home O2 eval on 2 L at rest and 6 L with exertion at home COVID test came back positive 12/09/2020- Recommended by Sample Tailor to quarantine for 21 days since symptoms start Pulmonology evaluated the patient and appreciate the recommendations Continue PO dexamethasone for 10 days Continue albuterol inhalers, incentive spirometer Talked to the finance and administration manager who would recommend D/c tomorrow Continue monitoring. Conservative management. (2) Acute respiratory failure with hypoxia: Code(s): J96.01 - Acute respiratory failure with hypoxia Status: Acute Assessment and Plan: Acute on chronic respiratory failure. Baseline 2-3 L via nasal cannula. Acute worsening hypoxia is likely secondary to COVID-19 pneumonia vs COPD exacerbation vs bacterial pneumonia. The patient has already had a full course of azithromycin and has only worsened. Currently on 2 L via nasal cannula and having hypoxia episodes with exertion Continue continuous pulse ox (3) ILD (interstitial lung disease): Code(s): J84.9 - Interstitial pulmonary disease, unspecified Status: Acute Assessment and Plan: Continue bronchodilators and steroid therapy. Pulmonology has been consulted by ER provider. Appreciate Pulmonology input. (4) COPD (chronic obstructive pulmonary disease): Qualifiers: COPD type: unspecified COPD Qualified Code(s): J44.9 - Chronic obstructive pulmonary disease, unspecified Code(s): J44.9 - Chronic obstructive pulmonary disease, unspecified Status: Chronic Assessment and Plan: Continue bronchodilators and respiratory therapy. (5) Essential hypertension: Code(s): I10 - Essential (primary) hypertension Status: Acute Assessment and Plan: Blood pressure stable at 134/66 this morning. Monitor blood pressure. Continue amlodipine and metoprolol. (6) Rheumatoid arthritis: Qualifiers: Rheumatoid arthritis location: unspecified site Rheumatoid factor presence: with rheumatoid factor Qualified Code(s): M05.9 - Rheumatoid arthritis with rheumatoid factor, unspecified Code(s): M06.9 - Rheumatoid arthritis, unspecified Status: Chronic Assessment and Plan: Continue weekly methotrexate if the patient is still here next Tuesday. Subjective Date/time seen: 12/12/20 15:36 Interval history: Date of Service 12/12/20: She is feeling better today. She was able to get a bath with OT and walk with PT. Home oxygen evaluation showed she needs 2 L at rest and 6 with exertion. She did feel comfortable with walking around on 6 L with PT. She still having add deep cough, nasal congestion and when she is able to cough or blow her nose and it is only slightly clear. Otherwise she denies chest pain, fever, chills, nausea, vomiting, diarrhea, abdominal pain, leg swelling, calf pain. Exam Narrative: Exam Narrative: General: 65-year-old woman sitting up in the chair talking on the phone, resting comfortably on 2 L via nasal cannula. In no acute distress. Skin: No jaundice or cyanosis. Good skin turgor. Neck: Full range of motion. Supple. Respiratory: Lungs are clear to auscultation bilaterally. No w
[2020-12-12] MEDS: SODIUM CHLORIDE NASAL GEL 14.1 GM 1 APPLIC NASAL (20:39)
[2020-12-12] MEDS: FLUTICASONE PROPIONATE 0.05% NA SPR 16 GM BTL (*BKC) 2 SPRAY NASAL (22:07)
[2020-12-12] MEDS: SALINE 0.65% NAS SOLN 44 ML BTL 1 SPRAY NASAL (22:07)
[2020-12-13] MEDS: LEVALBUTEROL HFA (*SP) 15 GM INHALER 2 PUFF INHALATION ×2 (02:01→08:39)
[2020-12-13 03:54] VITALS: BP 132/76; PULSE 60; RESP 18; TEMP 37; O2SAT 96
[2020-12-13 08:00] VITALS: BP 142/76; PULSE 58; PULSE 60; RESP 20; TEMP 36.8; O2SAT 93
[2020-12-13] MEDS: DEXAMETHASONE 2 MG TABLET 6 MG PO (08:40)
[2020-12-13] MEDS: ENOXAPARIN 40 MG/0.4 ML SYRINGE SUB-Q (08:40)
[2020-12-13] MEDS: guaiFENesin 12 HR 600 MG TABCR PO (08:40)
[2020-12-13 08:41] VITALS: PULSE 60
[2020-12-13] MEDS: METOPROLOL SUCCINATE EXT REL 25 MG TABCR PO (08:41)
[2020-12-13] MEDS: MONTELUKAST SODIUM 10 MG TABLET PO (08:41)
[2020-12-13] MEDS: CHOLECALCIFEROL 1,000 UNITS TABLET 1000 UNITS PO (08:41)
[2020-12-13] MEDS: amLODIPine BESYLATE 5 MG TABLET PO (08:41)
[2020-12-13] MEDS: FOLIC ACID 1 MG TABLET PO (08:41)
[2020-12-13 12:00] VITALS: BP 135/70; PULSE 63; RESP 20; TEMP 36.7; O2SAT 97
--- NOTE | 2020-12-13 14:01 | PM.PNPUL ---
Progress Note: A&P Assessment and Plan (1) COVID-19: Code(s): U07.1 - COVID-19 Status: Acute Assessment and Plan: Her symptoms are very mild and I believe dexamethasone alone at this stage should be sufficient at 6 mg p.o. daily for 10 days. (2) Chronic hypoxemic respiratory failure: Code(s): J96.11 - Chronic respiratory failure with hypoxia Status: Acute Assessment and Plan: This is likely due to her underlying interstitial lung disease related to rheumatoid arthritis and has likely been progressing slowly. (3) Acute respiratory failure with hypoxia: Code(s): J96.01 - Acute respiratory failure with hypoxia Status: Acute Assessment and Plan: Continue titrating oxygen to maintain saturations of 88% or better. She will need a new home oxygen assessment prior to discharge and she may very well require higher doses of oxygen then she was previously used to. (4) ILD (interstitial lung disease): Code(s): J84.9 - Interstitial pulmonary disease, unspecified Status: Acute (5) Rheumatoid arthritis: Qualifiers: Rheumatoid arthritis location: unspecified site Rheumatoid factor presence: with rheumatoid factor Qualified Code(s): M05.9 - Rheumatoid arthritis with rheumatoid factor, unspecified Code(s): M06.9 - Rheumatoid arthritis, unspecified Status: Chronic Assessment and Plan: I would recommend holding her methotrexate for now and this can be restarted on December 21, 2020 (6) COPD (chronic obstructive pulmonary disease): Qualifiers: COPD type: unspecified COPD Qualified Code(s): J44.9 - Chronic obstructive pulmonary disease, unspecified Code(s): J44.9 - Chronic obstructive pulmonary disease, unspecified Status: Chronic Assessment and Plan: She likely has some obstructive airway disease given her long smoking history and clinical response to bronchodilators. continue Symbicort 160/4.5 mcg 2 puffs q.12 hours with a spacer device. Continue as needed albuterol q.4 hours. Subjective Date/time seen: 12/13/20 14:01 Interval history: She continues to feel better and is ready to be discharged home. Review of Systems Review of Systems: All systems reviewed & are unremarkable except as noted in HPI and below Exam Const: General: cooperative, healthy appearing, comfortable, no acute distress, well developed, alert, awake and Physically active HENMT: Head: normal to inspection, normocephalic and atraumatic Eyes: General: appearance normal, both eyes and all related structures Neck: Neck: trachea midline and supple Resp: Effort & Inspection: normal respiratory effort and able to speak in complete sentences Auscultation: crackles and diminished lung sounds GI: Inspection: normal to inspection Auscultation: normal bowel sounds Skin: General skin exam: normal color and no rashes or lesions noted Neuro: General: oriented to person and oriented to place Cognition (Neuro): normal cognition Speech: normal speech Extrem: General: normal to inspection and no clubbing, cyanosis or edema Psych: Appearance: grossly normal and well kempt Mental Status: mental status grossly normal Objective Data Vital Signs Vital Signs: Vital Signs - 24 hr 12/12/20 14:30 12/12/20 14:33 12/12/20 14:35 Temperature Pulse Rate Respiratory Rate Blood Pressure Pulse Oximetry 87 L 90 82 L 12/12/20 14:37 12/12/20 14:39 12/12/20 14:42 Temperature Pulse Rate 101 H Respiratory Rate Blood Pressure Pulse Oximetry 83 L 85 L 87 L 12/12/20 14:45 12/12/20 15:00 12/12/20 16:00 Temperature 36.7 C Pulse Rate 86 63 Respiratory Rate 18 Blood Pressure 132/71 Pulse Oximetry 90 92 93 12/12/20 16:48 12/12/20 20:00 12/12/20 23:54 Temperature 37.1 C 37.1 C Pulse Rate 70 72 59 L Respiratory Rate 18 18 18 Blood Pressure 151/74 H 131/76 Pulse Oximetry 99 93 96 12/13/20
--- NOTE | 2020-12-13 15:50 | PM.DS ---
DS: Admitting Diagnosis Admitting Diagnosis Admitting Diagnosis: SOB DS: Discharge Diagnosis Discharge Diagnosis (1) COVID-19: Code(s): U07.1 - COVID-19 Status: Acute Assessment and Plan: Patient had known exposure to COVID-19 to her jewish. She developed symptoms of nasal congestion November 28, 2020. She was feeling better after receiving a Z-Tom from her literary writer. She then noticed worsening dyspnea on exertion and hypoxia while at home and then was told that multiple people at her charge had tested positive for COVID. Home O2 eval on 2 L at rest and 6 L with exertion at home COVID test came back positive 12/09/2020- Recommended by Rivet Sorter to quarantine for 21 days since symptoms start Continue PO dexamethasone for 10 days Continue albuterol inhalers, incentive spirometer *It was confirmed that her home oxygen concentrator is continuous oxygen and not a pulse. If she has any issues or concerns she can always call our hospital with any issues after discharge. (2) Acute respiratory failure with hypoxia: Code(s): J96.01 - Acute respiratory failure with hypoxia Status: Acute Assessment and Plan: Acute on chronic respiratory failure. Baseline 2-3 L via nasal cannula. Acute worsening hypoxia is likely secondary to COVID-19 pneumonia vs COPD exacerbation vs bacterial pneumonia. The patient has already had a full course of azithromycin and has only worsened. Currently on 2 L via nasal cannula and doing better on 6 L with exertion (3) ILD (interstitial lung disease): Code(s): J84.9 - Interstitial pulmonary disease, unspecified Status: Acute Assessment and Plan: Continue bronchodilators and steroid therapy. Pulmonology has been consulted by ER provider. Appreciate Pulmonology input. (4) COPD (chronic obstructive pulmonary disease): Qualifiers: COPD type: unspecified COPD Qualified Code(s): J44.9 - Chronic obstructive pulmonary disease, unspecified Code(s): J44.9 - Chronic obstructive pulmonary disease, unspecified Status: Chronic Assessment and Plan: Continue bronchodilators and respiratory therapy. (5) Essential hypertension: Code(s): I10 - Essential (primary) hypertension Status: Acute Assessment and Plan: Blood pressure stable at 135/70 this morning. Monitor blood pressure. Continue amlodipine and metoprolol. (6) Rheumatoid arthritis: Qualifiers: Rheumatoid arthritis location: unspecified site Rheumatoid factor presence: with rheumatoid factor Qualified Code(s): M05.9 - Rheumatoid arthritis with rheumatoid factor, unspecified Code(s): M06.9 - Rheumatoid arthritis, unspecified Status: Chronic Assessment and Plan: Continue weekly methotrexate if the patient is still here next Tuesday. DS: Summary Hospital Course Reason for hospitalization: Patient is a 65-year-old woman with a history chronic respiratory failure on 2 L of oxygen at home, from chronic interstitial lung disease, hypertension, who presented to the emergency room with complaints of worsening dyspnea on exertion and hypoxia at rest. The patient was exposed to COVID-19 from some of her jewish friends and she develops symptoms of nasal congestion, shortness of breath on 11/28/2020. Due to worsening symptoms she had decided to come into the ER for further evaluation workup. Initial labs showed she was afebrile, non tachycardic, normal respiratory rate, blood pressure slightly elevated 145/71, and pulse ox was hypoxic at 81% on 2 L. initial labs showed normal CBC with differential, ABG shows normal pH, low PO2 and oxygen saturation on 2 L. not r
[2020-12-13 16:00] VITALS: BP 136/42; PULSE 66; RESP 20; TEMP 36.8; O2SAT 96
--- NOTE | 2020-12-19 10:37 | PC.NURSE ---
Bood cx are negative. Sputum cx- normal richi
== END 2020-12-13 16:25 | disposition home or self-care (01) | DRG 177 ==
LOC: ANHED 16:15 → ANH3MEDSUR 18:07
PROVIDERS: Emergency Medicine; Family Medicine; Physician Assistant; Admitting Provider Internal Medicine; Emergency Provider Emergency Medicine; PCP Family Medicine; Visit Provider Internal Medicine
DX: U07.1 COVID-19 (principal); J96.21 Acute and chronic respiratory failure with hypoxia; J84.9 Interstitial pulmonary disease, unspecified; J45.901 Unspecified asthma with (acute) exacerbation; J44.9 Chronic obstructive pulmonary disease, unspecified; I10 Essential (primary) hypertension; E78.00 Pure hypercholesterolemia, unspecified; M06.9 Rheumatoid arthritis, unspecified; Z79.899 Other long term (current) drug therapy; Z85.118 Personal history of other malignant neoplasm of bronchus and lung; Z87.891 Personal history of nicotine dependence; Z88.0 Allergy status to penicillin; Z99.81 Dependence on supplemental oxygen
CPT/HCPCS: 36415; 36600; 71045; 71250; 80048; 80053; 82728; 82805; 83605; 83615; 83735; 84075; 84450; 84460; 85025; 85027; 85652; 86140; 87040; 87070; 87205; 93005; 94618; 94640; 96372; 96374; 96376; 97110; 97116; 97161; 97165; 97535; 99285; A9270; C9803; G0378; J1100; J1650; J8540; U0003; U0005

== ENCOUNTER 2021-04-01 10:15 | Outpatient (CLI) | payer MEDICARE, SELFPAY ==
--- NOTE | ~2021-04-01 | CT_ITS ---
EXAMINATION: CT chest high resolution [facility] EXAM DATE: 04/01/2021 10:43 INDICATION: R05 - Cough . Shortness of breath since COVID pneumonia in November. History lung cancer. TECHNIQUE: Spiral CT of the chest without contrast. HRCT. Axial, coronal and sagittal images of the chest were reviewed. Coronal maximum intensity pixel images of chest reviewed. The dose-length prod uct (DLP) for this examination was 303.99 mGy-cm. The exposure was tailored according to patient siz e (auto mA exposure control), and iterative reconstruction (ASIR) was used as additional dose reducti on technique. Comparison is made to prior examination from 12/09/2020. FINDINGS: Partial right pneumonectomy. There is interval development of approximately 2 x 3 cm massli ke region along the anterior aspect of the left hilum contiguous to pericardium, appearance is suspic ious for a 2nd primary lung cancer. No definite hilar adenopathy on this noncontrast study. There is extensive peripheral honeycombing with right basilar predominance. This is consistent with usual interstitial pneumonitis pattern interstitial lung disease. Some possible etiologies include co llagen vascular disease, chronic hypersensitivity pneumonitis, medications/drugs, prior viral infecti on, asbestosis, or can be idiopathic. Severe bronchiectasis. The main, central pulmonary arteries are dilated which can indicate elevated pulmonary arterial press ure, pulmonary arterial hypertension. There are no pleural or pericardial effusions. Tracheobronc hial tree is patent. There is no mediastinal, hilar or axillary lymphadenopathy. There is no pneu mothorax. There is cardiomegaly. There is moderate coronary arterial calcification, arterial scler osis. Upper abdomen is unremarkable. There is thoracic spondylosis without osteoblastic or osteoly tic lesions identified. IMPRESSION: 1. Lingular perihilar masslike region suspicious for developing primary lung cancer. 2. Extensive chronic interstitial lung disease and bronchiectasis unchanged. 3. Cardiomegaly. Pulmonary arterial hypertension. I spoke with [place] in Dr. Melanie Pelayo MD's office on 04/02/2021 08:43 CDT. I provided my direct number, requested her to review this report or call me back with questions. Mass abutting the hilum , cardiac margin is not ideal for percutaneous biopsy. Could obtain PET/CT. Reviewed, dictated and finalized at location A. IMPRESSION: 1. Lingular perihilar masslike region suspicious for developing primary lung c ancer. 2. Extensive chronic interstitial lung disease and bronchiectasis unchanged. 3. Cardiomegaly. Pulmonary arterial hypertension. I spoke with [place] in Dr. Melanie Pelayo MD's office on 04/02/2021 08:43 CDT. I provided my direct number, requested her to review this report or call me b ack with questions. Mass abutting the hilum, cardiac margin is not ideal for p ercutaneous biopsy. Could obtain PET/CT.
== END 2021-04-01 10:16 | disposition home or self-care (01) ==
PROVIDERS: PCP Family Medicine; Visit Provider Internal Medicine Critical Care Medicine
DX: R05 Cough (principal); I51.7 Cardiomegaly; J84.9 Interstitial pulmonary disease, unspecified
CPT/HCPCS: 71250

== ENCOUNTER 2021-04-07 08:50 | Outpatient (CLI) | payer MEDICARE, SELFPAY ==
--- NOTE | ~2021-04-07 | PE_ITS ---
EXAMINATION: PET skull to mid thigh DATE: 04/07/2021 11:00 INDICATION: Lung cancer presenting with lung mass. TECHNIQUE: Blood glucose level was 102 mg/dL. 11.398 mCi of 18-fluorodeoxyglucose (18-FDG) was admini stered i.v. Low dose computed tomography (CT) images were acquired from the base of the brain to the proximal thighs for attenuation correction and anatomic localization. Positron emission tomography (P ET) images were acquired in the same distribution beginning 69 minutes after injection. Images includ ing fused PET/CT images were reconstructed in axial, coronal, and sagittal planes. Automated exposure control technique was employed. The dose-length product was 1089.28mGy-cm. COMPARISON: Chest CT dated 04/01/2021 FINDINGS: Head/neck: There is symmetric increased activity in the oral cavity, nares, palatine tonsils, parotid glands, la ryngeal muscles and ocular muscles without CT correlate, likely physiologic. No pathologically enlarg ed cervical lymphadenopathy or suspicious foci of increased FDG uptake in the visualized head or neck . Chest: Volume loss in both lungs, greater in the right hemithorax with elevation of the right hemidiaphragm and postoperative change of prior right upper lobectomy at the right hilum. Again seen are bilateral diffuse groundglass opacities, irregular septal line thickening and bronchiectasis consistent with ch ronic interstitial lung disease in either nonspecific interstitial pneumonia (NSIP) or usual intersti tial pneumonia (UIP) pattern chronic interstitial lung disease. The degree of opacification on loss i s increased likely related to expiratory phase of imaging and the current study. Bronchomalacia with flattening and concave posterior margins to the trachea and left and right mainstem bronchi. There is diffuse mild increased FDG uptake with maximal SUV of 3.8 associated with the chronic interstitial l wilder disease. There is significantly more intense FDG uptake with maximal SUV of 18.6 associated with the 3.9 x 2.3 cm mass in the perihilar lingula. No pleural effusion. Mild cardiomegaly. No pericardia l effusion. Thoracic aorta is normal in caliber. There is enlargement of the central pulmonary arteri es consistent with pulmonary to hypertension. No pathologically enlarged or FDG avid thoracic lymphad enopathy. Abdomen/pelvis/proximal thighs: Physiologic renal accumulation and excretion of FDG activity in the kidneys, bladder and along portio ns of ureters. Normal degree and heterogenous pattern of increased uptake throughout the liver withou t radiologic correlate or dominant FDG avid lesion. The gallbladder, pancreas, spleen and bilateral a drenal glands are normal. There is extensive colonic diverticulosis with a sigmoid predominance. The re is no adjacent inflammatory change to suggest diverticulitis. Mild uptake scattered throughout the bowels without radiologic correlate, also likely physiologic. No other abnormal foci of increased FD G uptake or pathologically enlarged lymphadenopathy in the abdomen, pelvis or proximal thighs. Musculoskeletal: Mild thoracic kyphosis and dextrocurvature. Mild scattered degenerative skeletal changes. No suspicio us lytic, blastic or FDG avid bone lesions. Increased uptake overlying the left greater trochanter co nsistent with trochanteric bursitis. IMPRESSION: 1. Marked FDG uptake associated with a 3.9 x 2.3 cm lingular mass which is concerning for primary bro nchogenic carcinoma. If the patient is a biopsy candidate, not requiring supplemental oxygen at [facility], would consider CT-guided biopsy. 2. No lesion suspicious for metastatic disease. 3. Status post right upper lobectomy with diffuse bronchiectasis and chronic diffuse interstitial kaila g disease throughout the remaining lungs 4. Cardiomegaly with pulmonary arterial hypertension.. Rev
[2021-04-07 09:12] LABS: Glucose Point of Care 102 mg/dl (65-105)
== END 2021-04-07 08:51 | disposition home or self-care (01) ==
PROVIDERS: PCP Family Medicine; Visit Provider Internal Medicine Critical Care Medicine
DX: R91.8 Other nonspecific abnormal finding of lung field (principal); Z51.81 Encounter for therapeutic drug level monitoring; Z79.899 Other long term (current) drug therapy
CPT/HCPCS: 78815; 82948; A9552

== ENCOUNTER 2021-07-23 10:55 | Inpatient (IN) | payer MEDICARE, SELFPAY ==
[2021-07-23] VITALS (43 sets, daily range): BP systolic 82–144; BP diastolic 63–96; PULSE 70–180; RESP 16–36; TEMP 36.6–37.1; O2SAT 68–100
--- NOTE | ~2021-07-23 | XR_ITS ---
EXAMINATION: XR chest 1V portable EXAM DATE: 07/23/2021 11:21 INDICATION: Elevated heart rate, interstitial lung disease, COPD. Lung cancer. TECHNIQUE: Portable AP frontal chest x-ray was obtained. Comparison is made to prior examination from 12/08/2020. FINDINGS: Diffuse airspace disease appears not significantly changed accounting for differences in te [place] compared to earlier this year. Could be combination of left perihilar lung cancer, mediastina l lymphadenopathy superimposed on patient's chronic interstitial lung disease. Difficult to exclude s uperimposed acute infection given the extensive chronic opacity. No pneumothorax or sizable pleural e ffusion. Cardiomegaly and dilated pulmonary arteries. There are bony degenerative changes. IMPRESSION: Diffuse airspace disease, likely cancer and interstitial lung disease not significantly c hanged. Acute pneumonia not excludable. Reviewed, dictated and finalized at location A. IMPRESSION: Diffuse airspace disease, likely cancer and interstitial lung disea se not significantly changed. Acute pneumonia not excludable.
--- NOTE | 2021-07-23 11:06 | ECG_ITS ---
Measurements Intervals [place] Rate: 175 P: WA: 0 QRS: 32 QRSD: 84 T: 89 QT: 246 QTc: 421 Interpretive Statements ATRIAL FIBRILLATION WITH RAPID VENTRICULAR RESPONSE NONSPECIFIC ST & T-WAVE ABNORMALITY- HIGH LATERAL LEADS BASELINE ARTIFACT- I, II, III, AVR, AVL,A VF, V1-V6 ABNORMAL ECG Electronically Signed On 07-23-2021 11:12:22 CDT by Oni Graf D.O.
--- NOTE | 2021-07-23 11:10 | ED.GENADULT ---
HPI - General Adult General Chief complaint: Arrhythmia/Palpitations Stated complaint: Rapid heart rate Time Seen by Provider: 07/23/21 11:00 Source: RN notes reviewed History of Present Illness HPI narrative: Patient presents emergency department from home for rapid heart rate. He states he went to go get a cardiac echo today and was found to be in atrial fibrillation was referred to the ER for further evaluation patient states she does not have a history of atrial fibrillation she is followed by cardiology Dr. Gil. Patient denies having any feeling of rapid heart rate she denies any chest pain shortness of breath or any other symptoms patient states she is not on any blood thinners Related Data Home Medications Medication Instructions Recorded Confirmed cholecalciferol (vitamin D3) 1,000 unit PO DAILY 08/29/19 03/27/21 methotrexate sodium 7.5 mg PO WEEKLY 08/29/19 03/27/21 metoprolol succinate 25 mg PO DAILY 08/29/19 03/27/21 folic acid 1 mg tablet 1 mg PO DAILY 09/25/19 03/27/21 guaifenesin 600 mg tablet, 600 mg PO DAILY 10/28/20 03/27/21 extended release 12 hr fluticasone propionate [Allergy 1 spray INTRANASAL Q12H PRN 12/08/20 03/27/21 Relief (fluticasone)] Allergies Allergy/AdvReac Type Severity Reaction Status Date / Time Penicillins Allergy Unknown UNKNOWN Verified 07/23/21 11:07 Review of Systems Review of Systems: Gen.: Denies fevers or chills ENT: Denies congestion Respiratory: Denies shortness of breath or cough CV: See HPI GI: Denies abdominal pain nausea, emesis or diarrhea Musculoskeletal: Denies back pain or muscle pain Neuro: Denies numbness, tingling, weakness or focal weakness Skin: Denies rash Except as documented, all other systems reviewed and negative [facility] Past Medical History Medical History (Updated 07/23/21 @ 15:26 by Rory Fuller DO) Ascending aortic aneurysm Bronchiectasis Chronic lung disease Seen on 06/26/[address] Niru Collins at [facility]. PFTs consistent with severe restrictive lung disease. CT of the chest consistent with fibrotic nonspecific interstitial pneumonia and extensive bronchiectasis. Chronic obstructive pulmonary disease Chronic respiratory failure with hypoxia and hypercapnia COVID-19 (11/2020) Essential hypertension History of tobacco abuse Obstructive sleep apnea on CPAP Pure hypercholesterolemia Rheumatoid arthritis Has been off of methotrexate since 05/2021 due to radiation, currently on prednisone 10 mg daily. 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 Deemed not a surgical candidate, completed radiation therapy between 06/23/2021 and 07/10/2021. Surgical History Surgical History (Updated 07/23/21 @ 14:19 by Jaki Bee PA-C) History of lobectomy of lung (1995) Right upper lobectomy for lung cancer. Family History Family History Sibling Cerebrovascular accident Family history of chronic obstructive pulmonary disease Family history of lung cancer Family history of coronary artery disease Hypertension Family history of diabetes mellitus in first degree relative Family history of malignant melanoma Father Family history of lung cancer Mother Family history of lung cancer Other Family history of congestive heart failure Social History Social History (Updated 07/23/21 @ 14:21 by Jaki Bee PA-C) Social History: Surrogate decision maker: Code status: Smoking packs per day: 2 Smoking cigarettes per day: 40.0 Years smoked: 24 Smoking pack-years: 48.00 Smoking status: Former smoker Smoking end date: 10/24/06 Alcohol intake: never Substance use: never Substance use type: does not use Additional living arrangements comments: Resides in [place]. Additional occupation/education
[2021-07-23] MEDS: dilTIAZem HCl INJ 25 MG/5 ML VIAL 10 MG IV PUSH (11:11)
[2021-07-23 11:19] LABS: Basophils Percent Auto 0.5 % (0.2-1.2); Eosinophils Absolute Auto 0.2 K/mm3 (0-0.3); Eosinophils Percent Auto 2.6 % (0-4.4); Hematocrit 43.3 % (37.0-47.0); Hemoglobin 12.9 g/dL (12.0-15.0); Immature Granulocyte Absolute 0.03 K/mm3 (0.00-0.031); Immature Granulocyte Percent A 0.3 % (0-0.5); Lymphocytes Absolute Auto 0.81 K/mm3 (0.9-3.2); Lymphocytes Percent Auto 9.2 % (18.3-44.2); Mean Corpuscular HGB Conc 29.8 g/dl (32-36); Mean Corpuscular Hemoglobin 28.9 pg (26-34); Mean Corpuscular Volume 96.9 fl (80-100); Mean Platelet Volume 9.2 fl (7.4-10.4); Monocytes Absolute Auto 0.5 K/mm3 (0.1-0.6); Monocytes Percent Auto 6.1 % (2.6-8.5); Neutrophils Absolute Auto 7.2 K/mm3 (1.3-6.7); Neutrophils Percent Auto 81.3 % (45.5-73.1); Platelet Count Result 225 k/mm3 (150-375); Red Blood Count 4.47 M/mm3 (4.2-5.4); Red Cell Distribution Width 14.6 % (11.5-14.5); White Blood Count 8.8 K/mm3 (4.5-10.0)
[2021-07-23 11:30] LABS: INR 0.8; Prothrombin Time 11.3 Seconds (11.1-14.7)
[2021-07-23 11:31] LABS: Partial Thromboplastin Time 28.6 SECONDS (22.3-36.8)
[2021-07-23] MEDS: SODIUM CHLORIDE 0.9% IV 1,000 ML 999 ML IV CONT (11:36)
[2021-07-23 11:42] LABS: Blood Urea Nitrogen 12 mg/dL (7-17); Calcium 9.4 mg/dL (8.4-10.2); Carbon Dioxide > 40 mmol/L (22-30); Chloride 94 mmol/L (98-107); Estimated CRCL calculation 74 ml/min; Estimated Glomerular Filt Rate > 60; Glucose 119 mg/dL (65-110); Potassium 4.2 mmol/L (3.4-5.0); Sodium 139 mmol/L (137-145)
[2021-07-23 11:54] LABS: Troponin I < 0.012 ng/mL (0.000-0.034)
[2021-07-23 12:06] LABS: Hypochromasia 1+ (NORMAL); Stomatocytes 1+ (NORMAL)
[2021-07-23 12:15] LABS: Platelet Estimate Adequate (Adequate)
[2021-07-23] MEDS: ENOXAPARIN 100 MG/ML SYRINGE 89 MG SUB-Q (12:46)
--- NOTE | 2021-07-23 13:58 | ECG_ITS ---
Measurements Intervals [place] Rate: 84 P: -2 CT: 122 QRS: 13 QRSD: 83 T: 66 QT: 339 QTc: 401 Interpretive Statements SINUS RHYTHM ATRIAL COUPLET AND ATRIAL PREMATURE COMPLEXES BORDERLINE ST-T WAVE ABNORMALITY- HIGH LATERAL LEADS BASELINE ARTIFACT- I, II, III, AVR, AVL, AVF, V1, V3-V6 ABNORMAL ECG Electronically Signed On 07-23-2021 14:11:15 CDT by Oni Graf D.O.
--- NOTE | 2021-07-23 14:00 | PM.IMHP ---
H&P: HPI History of Present Illness Date/Time: 07/23/21 14:00 Chief Complaint: Rapid heart rate. Narrative: This is a 65-year-old female with hypertension, sleep apnea, COPD, rheumatoid arthritis, chronic interstitial lung disease on home oxygen, and squamous cell carcinoma of the lung status post right upper lobectomy in 1994 with recurrence in the lingula in March 2021 status post radiation therapy who presented to the emergency department for evaluation of rapid heart rate. She had an echocardiogram scheduled today to monitor a known ascending aortic aneurysm. On arrival to her appointment she was found to be in atrial fibrillation with rapid ventricular response and was directed to the emergency department. She has no known history of atrial fibrillation but she has noticed on very rare occasions that she will have fleeting palpitations and fact was told by Dr. Gil that she had PACs or PVCs. She was not having any feelings of racing heart or palpitations today however when she walked to the car from her house this morning she had some slight heaviness in her chest though that is not unusual for her as she gets extremely short of breath with minimal activity. In any regard she was started on a diltiazem drip in the emergency department and she has since converted to a sinus rhythm with intermittent ectopy. She denies orthopnea and PND but has noticed mild edema in her legs the past several days. No syncope or near syncope. She has not had nausea, vomiting, or sweats. No history of thyroid disease. Review of Systems Review of Systems: Twelve systems were reviewed with pertinent positives and negatives as per HPI. No fever, chills, or sweats. She denies recent cold and flu symptoms. She has a chronic cough which is productive of clear sputum, and that is on changed. She recently completed radiation for recurrent squamous cell carcinoma of the lingula and reports that she is finally getting her energy back. While receiving radiation she was frequently fatigued and fell asleep easily. She previously used a CPAP for sleep apnea however fell out of the habit. Her principal gifts officer has ordered a sleep study for her in the next month or so and believes that she may benefit from BiPAP given evidence of chronic respiratory failure with both hypoxia and hypercarbia on previous blood gases. Except as documented, all other systems were reviewed and are negative. [facility] Past Medical History Medical History Ascending aortic aneurysm Bronchiectasis Chronic lung disease Seen on 06/26/[address] Niru Collins at [facility]. PFTs consistent with severe restrictive lung disease. CT of the chest consistent with fibrotic nonspecific interstitial pneumonia and extensive bronchiectasis. Chronic obstructive pulmonary disease Chronic respiratory failure with hypoxia and hypercapnia COVID-19 (11/2020) Essential hypertension History of tobacco abuse Obstructive sleep apnea on CPAP Paroxysmal atrial fibrillation Pure hypercholesterolemia PVCs (premature ventricular contractions) Rheumatoid arthritis Has been off of methotrexate since 05/2021 due to radiation, currently on prednisone 10 mg daily. 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 Deemed not a surgical candidate, completed radiation therapy between 06/23/2021 and 07/10/2021. Surgical History Surgical History History of lobectomy of lung (1995) Right upper lobectomy for lung cancer. Family History Family History Sibling Cerebrovascular accident Family history of chronic obstructive pulmonary disease Family history of lung cancer Family history of coronary artery disease Hypertension Family history of diabe
[2021-07-23 15:22] LABS: Troponin I < 0.012 ng/mL (0.000-0.034)
--- NOTE | 2021-07-23 16:00 | ADMGEN ---
This patient, Rachana Palomino, was admitted to IMU Room 214-01. Patient/family oriented to hospital policies and general routines including ID bracelet, bed and alarms, visiting hours, pain management, procedures, bathroom and other care routines, personal items, smoking policy, room service/diet, and visiting hours. Information on how to activate the Rapid Response Team has been discussed. Patient/Family are encouraged to report perceived risks to care and to ask questions if they do not understand what they are told or what they should do.
[2021-07-23 17:16] LABS: Alanine Aminotransferase 10 U/L (4-35); Albumin Level 3.8 g/dL (3.5-5.1); Alkaline Phosphatase 70 U/L (38-126); Aspartate Amino Transferase 19 U/L (14-36); Bilirubin,Total 0.2 mg/dL (0.2-1.3); Magnesium 2.1 mg/dL (1.6-2.3)
[2021-07-23 17:28] LABS: Troponin I 0.017 ng/mL (0.000-0.034)
--- NOTE | 2021-07-23 17:34 | PM.CNCAR ---
Assessment and Plan Assessment and plan (1) Paroxysmal atrial fibrillation: Code(s): I48.0 - Paroxysmal atrial fibrillation Status: Acute Assessment and Plan: Patient with new onset of AFib RVR, converted to sinus rhythm with her Cardizem drip. Most likely her AFib is related to aging, hypertension and chronic lung disease. Ordering Echocardiogram and TSH Recommend initial strategy of rate control and anticoagulation since she was asymptomatic. Already taking metoprolol succinate 25 mg daily. Apparently had some trouble with bradycardia on 50 mg daily but that was several years ago and now she has a resting sinus tachycardia likely related to her chronic lung disease. Change Cardizem drip to metoprolol succinate 50 mg daily. She may be able tolerate the med Toprol 50 mg better now. An alternative would be to try sotalol or diltiazem, although we may have the same problems with bradycardia. CHADS2 Vasc score is 3 and I recommend chronic anticoagulation. Counseled patient about the DOACs versus warfarin. Some friends use Eliquis so we will see if this is affordable for her. (2) Essential hypertension: Code(s): I10 - Essential (primary) hypertension Status: Acute Assessment and Plan: Has been under good control with amlodipine and metoprolol. I will hold the amlodipine to see if her BP tolerates the increased metoprolol dose. (3) PVCs (premature ventricular contractions): Code(s): I49.3 - Ventricular premature depolarization Status: Acute Assessment and Plan: History of frequent PVCs treated with metoprolol succinate (4) Chronic lung disease: Code(s): J98.4 - Other disorders of lung Status: Acute Assessment and Plan: Has interstitial lung disease and also recently her 2nd lung cancer treated with radiation therapy. History of Present Illness History of Present Illness Consult date/time: 07/23/21 17:34 Reason For Visit: a fib with rvr Narrative: Rachana Palomino is a 65-year-old female whom we were asked to see at the request of the hospitalist for advice and opinion regarding her AFib RVR in consultation. She has history of PVCs, aortic insufficiency, hypertension, sleep apnea on CPAP, interstitial lung disease, bronchiectasis, right lung cancer status post right upper lobectomy in 1995. She was found to have a squamous cell left lung cancer in May 2021, treated with radiation therapy. The patient came in for the echo that Dr. Darling had ordered this morning was found to have AFib are RVR and sent to the emergency room. She did not notice any palpitations, PATHAK, chest pain or dizziness.. She was started on a Cardizem drip, increased to 10 milligrams/hour and converted this evening to NSR. No prior history of AFib. She is on home O2, and her finger oximeter at home sometimes shows heart rates up to 110. No history of falls, no bleeding problems. She states that several years ago when her metoprolol was increased to 50 mg daily she became bradycardic. The patient is followed by Dr. Darling, and was last seen in March 2021. She is on beta-rose for her PVCs and a blood pressure was well controlled. She has chronic PATHAK. Review of Systems Constitutional: Constitutional: Reports no additional constitutional complaints Eyes: Eyes: Reports no additional eye complaints ENT: Denies epistaxis Cardiovascular: Cardiovascular: Denies chest pain, Reports pedal edema (Noted some right ankle edema recently), Denies leg edema, Denies lightheadedness and Denies palpitations Respiratory: Respiratory: Reports dyspnea on exertion (Chronic) Gastrointestinal: Gastrointestinal: Denies abdominal pain, Denies hemato
[2021-07-23] MEDS: METOPROLOL TARTRATE 25 MG TABLET PO (20:15)
[2021-07-23] MEDS: APIXABAN 5 MG TABLET PO (20:16)
[2021-07-23] MEDS: guaiFENesin 12 HR 600 MG TABCR PO (20:16)
[2021-07-24] VITALS (16 sets, daily range): BP systolic 110–133; BP diastolic 63–75; PULSE 68–96; RESP 14–26; TEMP 36.4–36.9; O2SAT 95–100
[2021-07-24 05:55] LABS: Basophils Percent Auto 0.6 % (0.2-1.2); Eosinophils Absolute Auto 0.3 K/mm3 (0-0.3); Eosinophils Percent Auto 5.2 % (0-4.4); Hematocrit 36.2 % (37.0-47.0); Hemoglobin 10.5 g/dL (12.0-15.0); Immature Granulocyte Absolute 0.02 K/mm3 (0.00-0.031); Immature Granulocyte Percent A 0.4 % (0-0.5); Lymphocytes Absolute Auto 0.71 K/mm3 (0.9-3.2); Lymphocytes Percent Auto 14.8 % (18.3-44.2); Mean Corpuscular Hemoglobin 28.7 pg (26-34); Mean Corpuscular Volume 98.9 fl (80-100); Mean Platelet Volume 9.5 fl (7.4-10.4); Monocytes Absolute Auto 0.5 K/mm3 (0.1-0.6); Monocytes Percent Auto 9.8 % (2.6-8.5); Neutrophils Absolute Auto 3.3 K/mm3 (1.3-6.7); Neutrophils Percent Auto 69.2 % (45.5-73.1); Platelet Count Result 181 k/mm3 (150-375); Red Blood Count 3.66 M/mm3 (4.2-5.4); Red Cell Distribution Width 14.8 % (11.5-14.5); White Blood Count 4.8 K/mm3 (4.5-10.0)
[2021-07-24 06:14] LABS: Blood Urea Nitrogen 13 mg/dL (7-17); Calcium 8.4 mg/dL (8.4-10.2); Carbon Dioxide > 40 mmol/L (22-30); Chloride 94 mmol/L (98-107); Estimated CRCL calculation 85 ml/min; Estimated Glomerular Filt Rate > 60; Glucose 100 mg/dL (65-110); Potassium 4.1 mmol/L (3.4-5.0); Sodium 137 mmol/L (137-145)
--- NOTE | 2021-07-24 08:49 | PM.PNCARD ---
Progress Note: A&P Assessment and Plan (1) Paroxysmal atrial fibrillation: Code(s): I48.0 - Paroxysmal atrial fibrillation Status: Acute Assessment and Plan: Patient with new onset of AFib RVR, converted to sinus rhythm with her Cardizem drip. Most likely her AFib is related to aging, hypertension and chronic lung disease. Echo pending TSH 1.37 Recommend initial strategy of rate control and anticoagulation since she was asymptomatic. Continue metoprolol succinate 50mg daily and monitor for bradycardia - apparently she has had problems with bradycardia with this dose of metoprolol in the past. CHADS2 Vasc score is 3 and I recommend chronic anticoagulation. She has been started on apixaban 5mg b.i.d. Monitor for bleeding. First dose of metoprolol succinate 50 mg to be given this morning. Observe for blood pressure and heart rate tolerance. Would be reasonable to discharge later today if heart rate and blood pressure stable. (2) Essential hypertension: Code(s): I10 - Essential (primary) hypertension Status: Acute Assessment and Plan: Has been under good control with amlodipine and metoprolol. Amlodipine on hold for now as we observe BP tolerance of increased metoprolol dose. (3) PVCs (premature ventricular contractions): Code(s): I49.3 - Ventricular premature depolarization Status: Acute Assessment and Plan: History of frequent PVCs treated with metoprolol succinate (4) Chronic lung disease: Code(s): J98.4 - Other disorders of lung Status: Acute Assessment and Plan: Has interstitial lung disease and also recently her 2nd lung cancer treated with radiation therapy. Subjective Date/time seen: 07/24/21 08:49 Cardiology follow up for Atrial fibrillation with RVR Date of service 07/24/2021: Remains in sinus rhythm today. She is feeling well-denies shortness of breath, palpitations, chest pain. She does note the last night she had some mild swelling in her right ankle. She is on her home oxygen setting. Review of Systems Constitutional: Constitutional: Reports no additional constitutional complaints Eyes: Eyes: Reports no additional eye complaints ENT: Denies epistaxis Cardiovascular: Cardiovascular: Denies chest pain, Reports pedal edema (Noted some right ankle edema recently), Denies leg edema, Denies lightheadedness, Denies palpitations and Reports dyspnea on exertion (Chronic) Respiratory: Respiratory: Reports dyspnea on exertion (Chronic) Gastrointestinal: Gastrointestinal: Denies abdominal pain, Denies hematochezia and Denies hematemesis Genitourinary: Genitourinary: Denies hematuria Musculoskeletal: Musculoskeletal: Reports no additional musculoskeletal complaints Neurologic: Denies confusion Psychiatric: Psychiatric: Reports no additional psychiatric complaints and Denies confusion Endocrine: Endocrine: Denies palpitations Exam Narrative: Very pleasant older lady, on home O2, alert and oriented. No distress. Const: General: comfortable and no acute distress; No confusion Orientation/consciousness: No confusion HENMT: General nose exam: no epistaxis Mouth: Yes moist mucous membranes Eyes: EOM: EOMs intact bilaterally Neck: Neck: supple and no JVD Thyroid: thyroid normal Carotids: no bruits Lymphatic: lymphadenopathy not noted Resp: Effort & Inspection: normal respiratory effort Auscultation: crackles (Prominent rales bilaterally) Cardio: Rate: regular rate Rhythm: regular rhythm Heart sounds: no murmurs Other: Pedal pulses are intact GI: Inspection: non-distended Skin: General skin exam: normal color and no rashes or lesions noted Neuro: General: No confusion Cognition (Neuro): normal cognition Speech: normal speech Motor exam (neuro): Normal motor muscle tone prese
[2021-07-24] MEDS: APIXABAN 5 MG TABLET PO ×2 (11:14→20:44)
[2021-07-24] MEDS: CHOLECALCIFEROL 1,000 UNITS TABLET 1000 UNITS PO (11:15)
[2021-07-24] MEDS: MONTELUKAST SODIUM 10 MG TABLET PO (11:16)
[2021-07-24] MEDS: predniSONE 10 MG TABLET PO (11:16)
[2021-07-24] MEDS: guaiFENesin 12 HR 600 MG TABCR PO ×2 (11:16→20:44)
[2021-07-24 12:56] LABS: Hematocrit 37.1 % (37.0-47.0); Hemoglobin 11.1 g/dL (12.0-15.0)
--- NOTE | 2021-07-24 14:52 | ECHO_ITS ---
Patient Info Name: Rachana Palomino Age: 65 years : 1955 Gender: Female Ht: 65 in Wt: 196 lbs BSA: 2.05 m2 BP: 113 / 68 mmHg Heart Rhythm: Sinus Rhythm Exam Date: 07/24/2021 11:29 AM Exam Location: [facility] Pulmonary Patient Status: Outpatient Admit Date: 07/23/2021 Staff Ordering Physician: Jaki Bee PA-C [employer] Reading Teacher: Sinan Candelario RDCS, RT Attending Provider: Rohini Starr PA-C Referring Physician: Rohit RODAS; Exam Type: CA echo doppler color flow Study Info Indications I48.1 - Persistent atrial fibrillation Complete two-dimensional, color flow and Doppler transthoracic echocardiogram is performed. Summary 1. Complete two-dimensional, color flow and Doppler transthoracic echocardiogram is performed. 2. Left ventricular systolic function is normal, estimated at 65-70%. 3. Left ventricular chamber dimension is normal. 4. There is mildly increased left ventricular wall thickness. 5. The left ventricular diastolic function is grade I diastolic dysfunction. 6. Global longitudinal strain is borderline at -17 %. 7. Right ventricular chamber dimension is mildly enlarged. 8. Left atrial chamber dimension is severely enlarged. 9. Right atrial chamber dimension is moderately enlarged. 10. There is mild aortic valve regurgitation. 11. There is mild mitral valve regurgitation. 12. There is mild to moderate tricuspid valve regurgitation. 13. Moderate pulmonary hypertension, estimated pulmonary arterial systolic pressure is 58 mmHg. Left Ventricle Left ventricular chamber dimension is normal. Left ventricular systolic function is normal, estimated at 65-70%. There is mildly increased left ventricular wall thickness. The left ventricular diastolic function is grade I diastolic dysfunction. Global longitudinal strain is borderline at -17 %. Right Ventricle Right ventricular chamber dimension is mildly enlarged. Right ventricular systolic function is normal. Left Atria Left atrial chamber dimension is severely enlarged. Right Atria Right atrial chamber dimension is moderately enlarged. Atrial Septum Intact interatrial septum visualized by color flow imaging. Aortic Valve The aortic valve is trileaflet. There is mild aortic valve sclerosis. There is no aortic valve stenosis. There is mild aortic valve regurgitation. Pulmonic Valve The pulmonic valve is normal. There is no pulmonic valve stenosis. There is trace pulmonic regurgitation. Mitral Valve The mitral valve has calcified annulus. There is no mitral valve stenosis. There is mild mitral valve regurgitation. Tricuspid Valve The tricuspid valve leaflets are normal. There is no significant tricuspid valve stenosis. There is mild to moderate tricuspid valve regurgitation. Moderate pulmonary hypertension, estimated pulmonary arterial systolic pressure is 58 mmHg. Pericardium/Pleural The pericardium appears normal. There is no pericardial effusion. Inferior Vena Cava Normal inferior vena cava with >50% collapse upon inspiration consistent with elevated right atrial pressure, 10 mmHg. Aorta The aortic root size at the sinus of Valsalva is normal. Left Ventricular Outflow Tract Name Value Normal LVOT 2D LVOT
--- NOTE | 2021-07-24 16:02 | PM.IMPN ---
Progress Note: A&P Assessment and Plan (1) Atrial fibrillation with rapid ventricular response: Code(s): I48.91 - Unspecified atrial fibrillation Status: Acute Assessment and Plan: Converted to sinus rhythm on Cardizem drip. TSH normal echocardiogram pending. Dr. Herrera has been consulted and increased Metoprolol to 50 mg which will be started tonight Patient has no signs of any type of an infection, denies urinary symptoms, chest x-ray showing no acute changes, no changes to her chronic cough or oxygen requirement. She is not have any signs of having any type of pulmonary embolism with hemoptysis, changes to her breathing, no leg swelling or calf pain concerning for acute DVT causing atrial fibrillation with RVR Cardiology will monitor her overnight with her increased dose metoprolol. Pending echocardiogram. She can be discharged tomorrow if stable. Her insurance would not except [employer] but the cardiology team gave her samples that she can take and follow-up after discharge. Patient understands and agrees the plan all questions answered. (2) Abnormal chest x-ray: Code(s): R93.89 - Abnormal findings on diagnostic imaging of other specified body structures Status: Acute Assessment and Plan: Chest x-ray shows diffuse airspace disease which is likely due to her chronic interstitial lung disease with bronchiectasis and malignancy status post radiation. Acute pneumonia is unlikely. Not having any shortness of breath changes, sputum production changes, fevers, chills. I do not believe she has acute pneumonia (3) Squamous cell carcinoma of lung: Code(s): C34.90 - Malignant neoplasm of unspecified part of unspecified bronchus or lung Status: Acute Assessment and Plan: Patient completed a course of radiation on 07/10/2021 at [facility] in [place]. Atrial fibrillation could be due to her body being under stress of radiation just a few weeks ago. (4) Chronic respiratory failure with hypoxia and hypercapnia: Code(s): J96.11 - Chronic respiratory failure with hypoxia; J96.12 - Chronic respiratory failure with hypercapnia Status: Acute Assessment and Plan: She is at her baseline oxygen requirement. Scheduled for sleep study within the next month per her marriage performer at [facility]. (5) Chronic obstructive pulmonary disease: Code(s): J44.9 - Chronic obstructive pulmonary disease, unspecified Status: Acute Assessment and Plan: No acute issues. Continue maintenance inhalers. (6) Essential hypertension: Code(s): I10 - Essential (primary) hypertension Status: Acute Assessment and Plan: Blood pressures were reviewed and they are stable. Continue antihypertensives and monitor. (7) Obstructive sleep apnea: Code(s): G47.33 - Obstructive sleep apnea (adult) (pediatric) Status: Acute Assessment and Plan: Patient to have an upcoming sleep study as her marriage performer thing she may benefit from BiPAP. (8) Rheumatoid arthritis: Qualifiers: Rheumatoid arthritis location: unspecified site Rheumatoid factor presence: with rheumatoid factor Qualified Code(s): M05.9 - Rheumatoid arthritis with rheumatoid factor, unspecified Code(s): M06.9 - Rheumatoid arthritis, unspecified Status: Chronic Assessment and Plan: Off methotrexate since starting radiation, currently on prednisone 10 mg daily. Time Spent With Patient Time with patient: 25 - 35 minutes Subjective Date/time seen: 07/24/21 16:02 Interval history: Date of service 07/24/2021: She reports feeling well today. She denies any chest pain, shortness of breath, palpitations. She is feeling well after being started on the blood thinner. Denies any abnormal bleeding currently. She denies any fevers, chills, change to her chronic cough, increased shortness of breath, hemoptysis, leg swelling, calf pain, nause
[2021-07-24] MEDS: PANTOPRAZOLE 40 MG TABLET PO (20:44)
[2021-07-24] MEDS: METOPROLOL SUCCINATE EXT REL 50 MG TABCR PO (20:44)
[2021-07-25] VITALS (9 sets, daily range): BP systolic 102–123; BP diastolic 62–82; PULSE 68–90; RESP 16–20; TEMP 36.2–36.3; O2SAT 95–98
[2021-07-25 06:07] LABS: Hematocrit 36.9 % (37.0-47.0); Hemoglobin 10.9 g/dL (12.0-15.0); Mean Corpuscular HGB Conc 29.5 g/dl (32-36); Mean Corpuscular Hemoglobin 28.8 pg (26-34); Mean Corpuscular Volume 97.4 fl (80-100); Mean Platelet Volume 9.3 fl (7.4-10.4); Platelet Count Result 186 k/mm3 (150-375); Red Blood Count 3.79 M/mm3 (4.2-5.4); Red Cell Distribution Width 14.6 % (11.5-14.5); White Blood Count 4.3 K/mm3 (4.5-10.0)
[2021-07-25 06:43] LABS: Blood Urea Nitrogen 11 mg/dL (7-17); Calcium 8.9 mg/dL (8.4-10.2); Carbon Dioxide > 40 mmol/L (22-30); Chloride 96 mmol/L (98-107); Estimated CRCL calculation 87 ml/min; Estimated Glomerular Filt Rate > 60; Glucose 96 mg/dL (65-110); Potassium 4.4 mmol/L (3.4-5.0); Sodium 141 mmol/L (137-145)
--- NOTE | 2021-07-25 06:49 | PM.PNCARD ---
Progress Note: A&P Assessment and Plan (1) Paroxysmal atrial fibrillation: Code(s): I48.0 - Paroxysmal atrial fibrillation Status: Acute Assessment and Plan: Patient with new onset of AFib RVR, converted to sinus rhythm with her Cardizem drip. Most likely her AFib is related to aging, hypertension and chronic lung disease. Echo showed EF 65-70%, diastolic dysfunction, severe left atrial enlargement, mild AI/MR, [id number] TR TSH 1.37 Recommend initial strategy of rate control and anticoagulation since she was asymptomatic. Continue metoprolol succinate 50mg daily and monitor for bradycardia - apparently she has had problems with bradycardia with this dose of metoprolol in the past. CHADS2 Vasc score is 3 and I recommend chronic anticoagulation. She has been started on apixaban 5mg b.i.d. Monitor for bleeding. Tolerating a higher dose of metoprolol, 50 mg nightly, without bradycardia or hypotension. Okay for discharge off amlodipine Patient will call if she has any sustained episodes of tachycardia which she can not detect with her home pulse ox. (2) Essential hypertension: Code(s): I10 - Essential (primary) hypertension Status: Acute Assessment and Plan: Has been under good control with amlodipine and metoprolol. Amlodipine on hold for now as we observe BP tolerance of increased metoprolol dose. Current BP at goal just on metoprolol. (3) PVCs (premature ventricular contractions): Code(s): I49.3 - Ventricular premature depolarization Status: Acute Assessment and Plan: History of frequent PVCs treated with metoprolol succinate (4) Chronic lung disease: Code(s): J98.4 - Other disorders of lung Status: Acute Assessment and Plan: Has interstitial lung disease and also recently her 2nd lung cancer treated with radiation therapy. Subjective Date/time seen: 07/25/21 06:49 Interval history: Follow-up for new onset AFib RVR. History of PVCs treated with metoprolol, hypertension and interstitial lung disease. Followed by Dr. Wiggins. Disease 07/23/2021: Converted to sinus rhythm with IV Cardizem. Home metoprolol increased from 25 mg daily to 50 mg daily. Remote history of bradycardia with higher doses of metoprolol. 07/24/2021: Remains in sinus rhythm today. She is feeling well-denies shortness of breath, palpitations, chest pain. She does note the last night she had some mild swelling in her right ankle. She is on her home oxygen setting. Will stay overnight to observe heart rate response to metoprolol. Date of service 07/25/2021: Heart rate 60's-80's. Feeling well, no further atrial fibrillation.. Review of Systems Constitutional: Constitutional: Reports no additional constitutional complaints ENT: Denies epistaxis Cardiovascular: Cardiovascular: Denies chest pain, Reports pedal edema, Denies lightheadedness and Denies palpitations Respiratory: Respiratory: Reports dyspnea on exertion (Chronic) Gastrointestinal: Gastrointestinal: Denies abdominal pain Musculoskeletal: Musculoskeletal: Reports no additional musculoskeletal complaints Neurologic: Reports system reviewed and no additional complaints, except as documented Psychiatric: Psychiatric: Reports no additional psychiatric complaints Exam Narrative: Very pleasant lady attempting the lunch, no distress Const: General: comfortable and no acute distress HENMT: General nose exam: no epistaxis Eyes: EOM: EOMs intact bilaterally Neck: Neck: supple Resp: Effort & Inspection: normal respiratory effort Auscultation: crackles (Coarse rales both lungs half way up) Cardio: Rate: regular rate Rhythm: regular rhythm GI: Inspection: non-distended GI Palp: Yes Soft to palpation Skin: General skin exam: normal color Wounds: no
[2021-07-25] MEDS: APIXABAN 5 MG TABLET PO (09:59)
[2021-07-25] MEDS: MONTELUKAST SODIUM 10 MG TABLET PO (10:00)
[2021-07-25] MEDS: CHOLECALCIFEROL 1,000 UNITS TABLET 1000 UNITS PO (10:00)
[2021-07-25] MEDS: guaiFENesin 12 HR 600 MG TABCR PO (10:00)
[2021-07-25] MEDS: predniSONE 10 MG TABLET PO (10:01)
--- NOTE | 2021-07-25 13:05 | PM.DS ---
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 She had an echocardiogram scheduled today to monitor a known ascending aortic aneurysm. On arrival to her appointment she was found to be in atrial fibrillation with rapid ventricular response and was directed to the emergency department. Initial vitals showed slightly elevated blood pressure 144/82, tachycardic heart rate 165, afebrile, 100% oxygenation on 6 L. Initial labs showed normal CBC with differential, normal coag panel, serum bicarb greater than 40. Normal LFTs. Troponins are flat. TSH normal. CXR showed Diffuse airspace disease, likely cancer and interstitial lung disease not significantly changed. Acute pneumonia not excludable. EKG showed Afib with RVR 175 bpm. The patient was placed on a Cardizem drip and admitted into the hospital with a cardiology consultation. The patient converted on her own with the Cardizem drip and is now normal sinus rhythm with a heart rate in the 90s. Cardiology evaluated the patient and increased her metoprolol to 50 mg with well controlled heart rate in the 60s-70s. TSH is normal. Echocardiogram showed normal EF 65-70%, mild LVH, diastolic grade 1 dysfunction. RV is mildly enlarged, left atrial chamber is severely enlarged, right atrial tremors moderately enlarged. Moderate pulmonary hypertension. The patient was started on Eliquis blood thinner by the Cardiology team. Today she is doing much better. Heart rate well controlled. Cardiology feels she is stable for discharge with the increased dose of metoprolol and Eliquis. Follow-up in the office for further evaluation monitoring. Patient has no signs of any type of an infection, denies urinary symptoms, chest x-ray showing no acute changes, no changes to her chronic cough or oxygen requirement. She is not have any signs of having any type of pulmonary embolism with hemoptysis, changes to her breathing, no leg swelling or calf pain concerning for acute DVT causing atrial fibrillation with RVR (2) Abnormal chest x-ray: Code(s): R93.89 - Abnormal findings on diagnostic imaging of other specified body structures Status: Acute (3) Squamous cell carcinoma of lung: Code(s): C34.90 - Malignant neoplasm of unspecified part of unspecified bronchus or lung Status: Acute Assessment and Plan: Patient completed a course of radiation on 07/10/[address] [facility] in [place]. Atrial fibrillation could be due to her body being under stress of radiation just a few weeks ago. (4) Chronic respiratory failure with hypoxia and hypercapnia: Code(s): J96.11 - Chronic respiratory failure with hypoxia; J96.12 - Chronic respiratory failure with hypercapnia Status: Acute Assessment and Plan: She is at her baseline oxygen requirement. Scheduled for sleep study within the next month per her perinatal specialist at [facility]. (5) Chronic obstructive pulmonary disease: Code(s): J44.9 - Chronic obstructive pulmonary disease, unspecified Status: Acute Assessment and Plan: No acute issues. Continue maintenance inhalers. (6) Essential hypertension: Code(s): I10 - Essential (primary) hypertension Status: Acute Assessment and Plan: Blood pressures were reviewed and they are stable. Continue antihypertensives and monitor.
--- NOTE | 2021-07-25 14:59 | PC.NURSE ---
Patient discharged to home today. Education was provided on medication and follow-up. Patient had no further questions at this time.
[2021-07-27 16:00] VITALS: BP 153/83; PULSE 86; RESP 18; TEMP 36.9; O2SAT 92
== END 2021-07-25 15:08 | disposition home or self-care (01) | DRG 309 ==
LOC: ANHED 11:26 → ANHIMU 13:46
PROVIDERS: Physician Assistant; Admitting Provider Internal Medicine; Emergency Provider Emergency Medicine; PCP Family Medicine; Visit Provider Internal Medicine Critical Care Medicine
DX: I48.91 Unspecified atrial fibrillation (principal); J96.11 Chronic respiratory failure with hypoxia; J96.12 Chronic respiratory failure with hypercapnia; C34.10 Malignant neoplasm of upper lobe, unspecified bronchus or lung; R93.89 Abnormal findings on diagnostic imaging of other specified body structures; J44.9 Chronic obstructive pulmonary disease, unspecified; I27.20 Pulmonary hypertension, unspecified; J84.89 Other specified interstitial pulmonary diseases; Z99.81 Dependence on supplemental oxygen; I49.3 Ventricular premature depolarization; I10 Essential (primary) hypertension; G47.33 Obstructive sleep apnea (adult) (pediatric); M05.9 Rheumatoid arthritis with rheumatoid factor, unspecified; I71.4 Abdominal aortic aneurysm, without rupture; Z79.899 Other long term (current) drug therapy; Z86.16 Personal history of COVID-19; Z90.2 Acquired absence of lung [part of]; Z92.3 Personal history of irradiation
CPT/HCPCS: 36415; 71045; 80048; 80076; 83735; 84443; 84484; 85014; 85018; 85025; 85027; 85610; 85730; 93005; 93306; 94640; 96365; 96366; 96372; 99285; A9270; G0378; J1650; J7030; J7512

== ENCOUNTER 2021-08-13 10:01 | Inpatient (IN) | payer MEDICARE, SELFPAY ==
[2021-08-13] VITALS (59 sets, daily range): BP systolic 111–154; BP diastolic 70–107; PULSE 108–185; RESP 17–32; TEMP 36.4–36.8; O2SAT 66–99; BMI 34.5
--- NOTE | ~2021-08-13 | CT_ITS ---
EXAMINATION: CTA chest PE protocol DATE: 08/13/2021 11:48 INDICATION: Shortness of breath TECHNIQUE: Computed tomography (CT) pulmonary angiogram of the chest was performed with 100 mL Omnipa que-350 intravenous contrast. Additional 3D reconstructions utilizing coronal maximum intensity proje ction (MIP) were performed. Automated exposure control and iterative reconstruction technique were em ployed. The dose-length product was 471.65 mGy-cm. COMPARISON: 04/01/2021 and and 02/04/2017 FINDINGS: Excellent contrast opacification of the pulmonary arteries. There is mild streak artifact from dense contrast in the superior vena cava and right atrium. Mild scattered respiratory motion artifact which does not significantly limit evaluation. No pulmonary embolism. Enlargement of the central pulmonary arteries consistent with pulmonary arterial hypertension. Postoperative change of prior right upper lobectomy with compensatory hyperexpansion of the right middle lobe. Chronic interstitial lung diseas e with mosaic attenuation in the right lower lobe and scattered throughout the left lung and with low er lobe predominant bronchiectasis and honeycombing. There has been continued progression in the grou ndglass opacities. No pleural effusion or pneumothorax. Moderate cardiac megaly with biatrial enlarge ment. Atherosclerotic coronary artery calcification is. No pericardial effusion. No pathologically en larged thoracic lymphadenopathy. Right sixth rib thoracotomy defect. Mild thoracic kyphosis with manager language vasiliy minimal anterior wedging of a few mid thoracic vertebral bodies and mild spondylosis. IMPRESSION: 1. No pulmonary embolism. 2. Interval progression of chronic interstitial lung disease with usual interstitial pneumonia (UIP) pattern. 3. Status post right upper lobectomy. 4. Moderate cardiac megaly with biatrial enlargement and enlargement of the central pulmonary arterie s consistent with pulmonary arterial hypertension. Reviewed, dictated and finalized at location A. IMPRESSION: 1. No pulmonary embolism. 2. Interval progression of chronic interstitial lung disease with usual interst itial pneumonia (UIP) pattern. 3. Status post right upper lobectomy. 4. Moderate cardiac megaly with biatrial enlargement and enlargement of the moshe tral pulmonary arteries consistent with pulmonary arterial hypertension.
--- NOTE | ~2021-08-13 | XR_ITS ---
EXAMINATION: XR chest port-a-cath/central DATE: 08/14/2021 10:30 INDICATION: Central line placement. TECHNIQUE: A single frontal view of the chest was obtained. COMPARISON: Chest single view at 8:48 AM FINDINGS: There are airspace and interstitial opacities in all lung zones bilaterally. No pleural eff usion or pneumothorax. Cardiomegaly is noted. The endotracheal tube tip is 3.6 cm above the willem. T he nasogastric tube tip is beyond the inferior margin of the radiograph, but at least to the stomach. A left upper extremity peripherally inserted central venous catheter (PICC) is seen with tip at supe rior cavoatrial junction. IMPRESSION: 1. PICC tip at superior cavoatrial junction. 2. Stable diffuse lung disease, consistent with severe chronic interstitial lung disease. 3. Cardiomegaly. Reviewed, dictated and finalized at location A. IMPRESSION: 1. PICC tip at superior cavoatrial junction. 2. Stable diffuse lung disease, consistent with severe chronic interstitial kaila g disease. 3. Cardiomegaly.
--- NOTE | ~2021-08-13 | XR_ITS ---
EXAMINATION: XR chest 1V portable DATE: 08/14/2021 05:49 INDICATION: Congestive heart failure. Interstitial lung disease. TECHNIQUE: A single frontal view of the chest was obtained. COMPARISON: Chest single view 08/13/2021, chest CT 08/13/2021 FINDINGS: The patient is rotated to her left. There are surgical changes of right upper lobectomy. Th ere are airspace and interstitial opacities throughout the lungs bilaterally. No pleural effusion or pneumothorax. Cardiomegaly is noted. There is a thoracotomy defect involving right sixth rib. IMPRESSION: 1. Stable diffuse lung disease, consistent with severe chronic interstitial lung disease. 2. Cardiomegaly. Reviewed, dictated and finalized at location A. IMPRESSION: 1. Stable diffuse lung disease, consistent with severe chronic interstitial kaila g disease. 2. Cardiomegaly.
--- NOTE | ~2021-08-13 | XR_ITS ---
XR chest 1V portable 08/13/2021 10:42 Indication: Chest pain. Interstitial lung disease. Procedure: AP portable chest Comparison: Comparison to multiple prior studies sequentially, with oldest reviewed study dated 12/14. Findings: Cardiomegaly with diffuse bilateral airspace disease. No significant pleural effusion or pn eumothorax. No acute osseous abnormality. Impression: 1: Diffuse bilateral airspace disease which may represent pneumonia or edema. 2: Cardiomegaly. Reviewed, dictated and finalized at location B. Impression: 1: Diffuse bilateral airspace disease which may represent pneumonia or edema. 2: Cardiomegaly.
--- NOTE | ~2021-08-13 | XR_ITS ---
EXAMINATION: XR abdomen NG/feed tube insert DATE: 08/14/2021 09:05 INDICATION: Orogastric tube placement. TECHNIQUE: A semiupright view of the abdomen was obtained. COMPARISON: None. FINDINGS: The lower abdomen is excluded. There are no dilated loops of bowel. The nasogastric tube ti p is in the stomach. IMPRESSION: 1. Nasogastric tube tip in the stomach. Reviewed, dictated and finalized at location A.
--- NOTE | ~2021-08-13 | XR_ITS ---
. EXAMINATION: XR chest ET placement DATE: 08/14/2021 09:05 INDICATION: Intubation. TECHNIQUE: A single frontal view of the chest was obtained. COMPARISON: Chest single view at 5:18 AM FINDINGS: There are surgical changes of right upper lobectomy. There are airspace and interstitial op acities in all lung zones bilaterally. No pleural effusion or pneumothorax. Cardiomegaly is noted. Th e endotracheal tube tip is 6 mm above the willem. The nasogastric tube tip is beyond the inferior mar gin of the radiograph, but at least to the stomach. There is a thoracotomy defect involving right six th rib. IMPRESSION: 1. Endotracheal tube tip 6 mm above the willem. 2. Stable diffuse lung disease, consistent with severe chronic interstitial lung disease. 2. Cardiomegaly. Reviewed, dictated and finalized at location A. IMPRESSION: 1. Endotracheal tube tip 6 mm above the willem. 2. Stable diffuse lung disease, consistent with severe chronic interstitial kaila g disease. 2. Cardiomegaly.
--- NOTE | ~2021-08-13 | XR_ITS ---
EXAMINATION: XR chest 1V portable INDICATION: Shortness of breath TECHNIQUE: Portable AP chest at 2139 hours COMPARISON: CT and chest radiograph from today FINDINGS: Opacities of the upper lung zones persist but have improved. There are chronic and unchange d opacities of the lung bases, demonstrated to be chronic interstitial lung disease in a pattern of u sual interstitial pneumonia on today's chest CT. Cardiomegaly is noted. There is no pleural effusion or pneumothorax. IMPRESSION: 1. Improving opacities of the upper lung zones, consistent with pneumonia/or pulmonary edema. 2. Cardiomegaly. Reviewed, dictated and finalized at location A. IMPRESSION: 1. Improving opacities of the upper lung zones, consistent with pneumonia/or pu lmonary edema. 2. Cardiomegaly.
--- NOTE | ~2021-08-13 | XR_ITS ---
EXAMINATION: XR chest 1V portable INDICATION: Respiratory failure TECHNIQUE: Portable AP chest at 0518 hours COMPARISON: 08/14/2021 FINDINGS: The endotracheal tube ends approximately 2.7 cm above the willem. The nasogastric tube is f ollowed as far as the stomach. Its tip is beyond the inferior margin of the radiograph. The left uppe r extremity PICC now ends with its tip in the right brachiocephalic vein. Diffuse interstitial and ai rspace opacities persist throughout all lung zones with slight interval improvement. No definite pleu ral effusion or pneumothorax is identified. Cardiomegaly is noted. IMPRESSION: 1. Diffuse lung disease with slight interval improvement, consistent with pneumonia and/or pulmonary edema and/or acute respiratory distress syndrome (ARDS). 2. Left upper extremity PICC now ending with its tip in the right brachiocephalic vein. 3. Cardiomegaly. Reviewed, dictated and finalized at location A. IMPRESSION: 1. Diffuse lung disease with slight interval improvement, consistent with pneum onia and/or pulmonary edema and/or acute respiratory distress syndrome (ARDS). 2. Left upper extremity PICC now ending with its tip in the right brachiocephal ic vein. 3. Cardiomegaly.
--- NOTE | 2021-08-13 10:14 | ECG_ITS ---
Measurements Intervals [place] Rate: 180 P: HI: 0 QRS: 63 QRSD: 86 T: 212 QT: 226 QTc: 392 Interpretive Statements ATRIAL FIBRILLATION WITH RAPID VENTRICULAR RESPONSE ST-T WAVE ABNORMALITY IN LATERAL LEADS- CONSIDER ISCHEMIA BASELINE ARTIFACT- I, II, III, AVR, AVL, AVF, V1-V6 ABNORMAL ECG Electronically Signed On 08-13-2021 12:08:53 CDT by Oni Graf D.O.
[2021-08-13] MEDS: dilTIAZem HCl INJ 25 MG/5 ML VIAL 10 MG IV PUSH ×2 (10:24→11:09)
[2021-08-13 10:41] LABS: Basophils Percent Auto 0.5 % (0.2-1.2); Eosinophils Absolute Auto 0.1 K/mm3 (0-0.3); Eosinophils Percent Auto 1.2 % (0-4.4); Hematocrit 38.2 % (37.0-47.0); Hemoglobin 11.6 g/dL (12.0-15.0); Immature Granulocyte Absolute 0.03 K/mm3 (0.00-0.031); Immature Granulocyte Percent A 0.3 % (0-0.5); Lymphocytes Absolute Auto 2.11 K/mm3 (0.9-3.2); Lymphocytes Percent Auto 23.8 % (18.3-44.2); Mean Corpuscular HGB Conc 30.4 g/dl (32-36); Mean Corpuscular Hemoglobin 28.9 pg (26-34); Mean Corpuscular Volume 95.3 fl (80-100); Mean Platelet Volume 9.2 fl (7.4-10.4); Monocytes Absolute Auto 0.6 K/mm3 (0.1-0.6); Monocytes Percent Auto 6.6 % (2.6-8.5); Neutrophils Percent Auto 67.6 % (45.5-73.1); Platelet Count Result 276 k/mm3 (150-375); Red Blood Count 4.01 M/mm3 (4.2-5.4); Red Cell Distribution Width 15.1 % (11.5-14.5); White Blood Count 8.9 K/mm3 (4.5-10.0)
[2021-08-13] MEDS: SODIUM CHLORIDE 0.9% IV 500 ML 999 ML IV CONT (10:44)
[2021-08-13] MEDS: ASPIRIN 81 MG CHEWABLE TABLET 324 MG PO (10:44)
[2021-08-13 10:50] LABS: INR 1.2; Prothrombin Time 14.9 Seconds (11.1-14.7)
[2021-08-13 10:51] LABS: Partial Thromboplastin Time 33.4 SECONDS (22.3-36.8)
[2021-08-13 11:27] LABS: Blood Urea Nitrogen 16 mg/dL (7-17); Calcium 9.7 mg/dL (8.4-10.2); Carbon Dioxide > 40 mmol/L (22-30); Chloride 90 mmol/L (98-107); Estimated CRCL calculation 137 ml/min; Estimated Glomerular Filt Rate > 60; Glucose 125 mg/dL (65-110); Potassium 4.6 mmol/L (3.4-5.0); Sodium 137 mmol/L (137-145)
[2021-08-13 11:34] LABS: Troponin I 0.015 ng/mL (0.000-0.034)
--- NOTE | 2021-08-13 12:07 | ED.CHESTPAIN ---
HPI - Chest Pain General Chief Complaint: Chest Pain Stated Complaint: Afib Time Seen by Provider: 08/13/21 10:13 Source: patient History of Present Illness HPI narrative: Patient presents with chest pain and shortness of breath. Patient reports he was recently admitted a couple weeks ago with David espinoza with RVR she had her medications adjusted initially was doing well over the past few days she has had return of her symptoms this morning was more severe so she came to the ER for evaluation. She denies fevers, chills, nausea, vomiting. She reports chest pain described as her heart rate is going fast,, constant, no clear aggravating or alleviating factors, does not radiate. Related Data Home Medications Medication Instructions Recorded Confirmed cholecalciferol (vitamin D3) 1,000 unit PO DAILY 08/29/19 08/13/21 guaifenesin 600 mg tablet, 600 mg PO Q12H 10/28/20 08/13/21 extended release 12 hr fluticasone propionate [Allergy 1 spray INTRANASAL Q12H PRN 12/08/20 08/13/21 Relief (fluticasone)] budesonide-formoterol [Symbicort] 2 puff INHALATION Q12H 07/23/21 08/13/21 pantoprazole 40 mg PO DAILY 07/23/21 08/13/21 prednisone 10 mg PO DAILY 07/23/21 08/13/21 amlodipine 5 mg PO DAILY 08/13/21 08/13/21 apixaban [Eliquis] 5 mg PO Q12HR 08/13/21 08/13/21 furosemide 20 mg PO DAILY 08/13/21 08/13/21 Allergies Allergy/AdvReac Type Severity Reaction Status Date / Time Penicillins Allergy Unknown UNKNOWN Verified 08/13/21 10:58 Review of Systems Review of Systems: CONSTITUTIONAL: Denies fever, chills, or sweats. EYES: Denies visual changes, redness, or discharge. ENT: Denies rhinorrhea, congestion, sore throat, or otalgia. CARDIOVASCULAR: Patient ports chest pain palpitations RESPIRATORY: reports cough and shortness of breath GASTROINTESTINAL: Denies abdominal pain, nausea, vomiting, or diarrhea. GENITOURINARY: Denies dysuria or hematuria. SKIN: Denies rash or itching. MUSCULOSKELETAL: Denies back pain, joint pain, or myalgia. NEUROLOGIC: Denies headache, numbness, dizziness, or weakness. PSYCHIATRIC: Denies anxiety or depression. All systems reviewed & are unremarkable except as noted in HPI and below PMFSH Past Medical History Medical History (Updated 08/13/21 @ 15:03 by Bruna Boyce NP) Ascending aortic aneurysm Bronchiectasis Chronic lung disease Seen on 06/26/[address] Niru Collins at [facility]. PFTs consistent with severe restrictive lung disease. CT of the chest consistent with fibrotic nonspecific interstitial pneumonia and extensive bronchiectasis. Chronic obstructive pulmonary disease Chronic respiratory failure with hypoxia and hypercapnia COVID-19 (11/2020) Essential hypertension History of tobacco abuse Obstructive sleep apnea on CPAP No longer wears a CPAP Paroxysmal atrial fibrillation Pure hypercholesterolemia PVCs (premature ventricular contractions) Rheumatoid arthritis Has been off of methotrexate since 05/2021 due to radiation, currently on prednisone 10 mg daily. 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 Stage IB squamous cell carcinoma of the lingula diagnosed on biopsy taken 05/18/2021 at [facility]. Deemed not a surgical candidate, completed radiation therapy between 06/23/2021 and 07/10/2021. Surgical History Surgical History History of lobectomy of lung (1995) Right upper lobectomy for lung cancer. Family History Family History Sibling Cerebrovascular accident Family history of chronic obstructive pulmonary disease Family history of lung cancer Family history of coronary artery disease Hypertension Family history of diabetes mellitus in first degree relative Family history of malignant melanoma Father Family history of lung cancer Mother Family history of lung cancer Other Family history of congestive heart failure
[2021-08-13 12:09] LABS: Alanine Aminotransferase 12 U/L (4-35); Albumin Level 4.1 g/dL (3.5-5.1); Alkaline Phosphatase 84 U/L (38-126); Aspartate Amino Transferase 23 U/L (14-36); Bilirubin,Total 0.6 mg/dL (0.2-1.3)
[2021-08-13] MEDS: AMIODARONE 150 MG/D5W 100 ML 150 MG/100 ML BAG 600 MG IV CONT ×4 (14:47→22:37)
--- NOTE | 2021-08-13 14:52 | PM.IMHP ---
H&P: HPI History of Present Illness Date/Time: 08/13/21 14:52 this is a 65 year female patient who was recently discharged from here on 07/25/2021 with a similar episode. The patient stated that she was holding her medication last night for a procedure today. The patient came to the emergency room with complaints of chest pain and shortness of breath. Patient stated that she has been feeling very fatigued. The patient has a history of atrial fibrillation. Patient stated she recently had her medication adjusted for her AFib. The patient's symptoms returned this morning and were severe. So she came to the emergency room. The patient was short of breath but denied any chest pain. She stated that her heart was beating fast and she could not catch her breath. The patient chronically wears oxygen at home And her oxygen levels very according to how she feels. The patient has had her oxygen up to 10 L per nasal cannula in the past. She does have a history of having lung cancer with last radiation June this year. The patient was noted to be in AFib with RVR with heart rate in the 160s. Chest x-ray was read as diffuse bilateral airspace disease which may represent pneumonia or edema. Cardiomegaly. Chest CTA was read as no pulmonary embolism. Interval progression of chronic interstitial lung disease with usual interstitial pneumonia pattern. Status post right upper lobectomy. Moderate cardia cardiac megaly with biatrial enlargement and enlargement of the central pulmonary arteries consistent with pulmonary artery hypertension. EKG today was read as atrial fibrillation with rapid ventricular response heart rate in the 180s. Patient currently has oxygen on at 4 L per nasal cannula. the patient was given an aspirin, IV Cardizem, IV fluids, diltiazem drip, Lopressor IV, and cefepime. Patient's heart rate remained in the 160s and the patient was changed to amiodarone. Patient recently had an echo performed on 07/24/2020 which was read as the followin. Complete two-dimensional, color flow and Doppler transthoracic echocardiogram is performed. 2. Left ventricular systolic function is normal, estimated at 65-70%. 3. Left ventricular chamber dimension is normal. 4. There is mildly increased left ventricular wall thickness. 5. The left ventricular diastolic function is grade I diastolic dysfunction. 6. Global longitudinal strain is borderline at -17 %. 7. Right ventricular chamber dimension is mildly enlarged. 8. Left atrial chamber dimension is severely enlarged. 9. Right atrial chamber dimension is moderately enlarged. 10. There is mild aortic valve regurgitation. 11. There is mild mitral valve regurgitation. 12. There is mild to moderate tricuspid valve regurgitation. 13. Moderate pulmonary hypertension, estimated pulmonary arterial systolic pressure is 58 mmHg. the patient is currently on Eliquis Q 12 and stated that she had not had any of her medication yet today. The patient had a couple soft blood pressures and was given IV fluids. Most recent blood pressure 130/83. I had adjusted her blood pressure cuff when I assessed her. The patient is being admitted to inpatient services on the date of service of 08/13/2021. Chief Complaint: Shortness of breath Review of Systems Review of Systems: All systems reviewed & are unremarkable except as noted in HPI and below Constitutional: Constitutional: Reports as per HPI and Reports no additional constitutional complaints Eyes: Eyes: Reports as per HPI and Reports no additional eye complaints ENT: Reports system reviewed and no additional complaints, except as documented and Reports Normal hearing present Cardiovascular: Cardiovascular: Reports no additional cardiovascular complaints Respiratory: Respiratory: Reports no additional respiratory complaints and Reports no additional respiratory complaints Gastrointestinal: Gastrointestinal: Reports as per HPI and Reports no namita
--- NOTE | 2021-08-13 15:34 | PC.NURSE ---
O2 increase to 5l nc for SPO2 88 increased SPO2 95
--- NOTE | 2021-08-13 16:23 | ADMGEN ---
This patient, Rachana Palomino, was admitted to Intensive Care Unit-7 at 1600. Patient/family oriented to hospital policies and general routines including ID bracelet, bed and alarms, visiting hours, pain management, procedures, bathroom and other care routines, personal items, smoking policy, room service/diet, and visiting hours. Information on how to activate the Rapid Response Team has been discussed. Patient/Family are encouraged to report perceived risks to care and to ask questions if they do not understand what they are told or what they should do.
[2021-08-13 16:57] LABS: Lactic Acid Reflex 1.8 mmol/L (0.7-2.1)
[2021-08-13] MEDS: METOPROLOL TARTRATE INJ 5 MG/5 ML VIAL IV PUSH ×2 (18:54→19:35)
[2021-08-13] MEDS: APIXABAN 5 MG TABLET PO (19:36)
[2021-08-13] MEDS: guaiFENesin 12 HR 600 MG TABCR PO (19:36)
--- NOTE | 2021-08-13 20:49 | PM.CNCAR ---
Assessment and Plan Assessment and plan (1) Atrial fibrillation with rapid ventricular response: Code(s): I48.91 - Unspecified atrial fibrillation Status: Acute Assessment and Plan: Patient presents with recurrent AFib RVR, causing acute diastolic CHF. She has not responded well to treatment with IV diltiazem beta-blockers and 1 dose of amiodarone. I was hoping to avoid amiodarone (Anusol Tiara) in this patient with interstitial lung disease but I think we will have to use at least in the short run. She may need a cardioversion but she is not in good shape for an elective cardioversion because of her respiratory distress and mild hypoxia. She is in a very tenuous situation and may do poorly. I discussed the possible need for intubation and ventilation if she progressively declines and would both prefer not to do this but she agrees that if she worsens that is an option. Start IV amiodarone gtt Lasix 40 mg IV push x1 May need BiPAP May need urgent cardioversion In the long run I think referral to EP for AFib ablation or pacemaker/AV node ablation will be the best option for this patient. (2) Acute diastolic CHF (congestive heart failure): Code(s): I50.31 - Acute diastolic (congestive) heart failure Status: Acute Assessment and Plan: Patient appears to have acute diastolic heart failure related to AFib with a very rapid response. (3) Chronic respiratory failure with hypoxia, on home oxygen therapy: Code(s): J96.11 - Chronic respiratory failure with hypoxia; Z99.81 - Dependence on supplemental oxygen Status: Acute Assessment and Plan: Chronic respiratory failure due to interstitial lung disease, lobectomy for lung cancer and radiation therapy to for lung cancer (4) Tachy-jaya syndrome: Code(s): I49.5 - Sick sinus syndrome Status: Acute Assessment and Plan: Known to have episodes of sinus bradycardia in the past. (5) ILD (interstitial lung disease): Code(s): J84.9 - Interstitial pulmonary disease, unspecified Status: Acute Assessment and Plan: On home O2 (6) PVCs (premature ventricular contractions): Code(s): I49.3 - Ventricular premature depolarization Status: Acute Assessment and Plan: Treated with beta-blockers History of Present Illness History of Present Illness Consult date/time: 08/13/21 20:49 Consult reason: atrial fibrillation Reason For Visit: AFIB and RVR Narrative: Date of service 08/13/2021: Rachana Palomino is a 65-year-old female with severe lung disease whom I was asked to see at the request of the hospitalist for my advice and opinion regarding her AFib RVR in consultation. She has history of PVCs, aortic insufficiency, hypertension, sleep apnea previously on CPAP, interstitial lung disease, bronchiectasis, right lung cancer status post right upper lobectomy in 1995, and squamous cell cancer of the left long found in May 2021 treated with radiation therapy. She was admitted at the end of June with AFib RVR and converted to sinus rhythm on diltiazem. She was started on Eliquis, and has not missed any doses. Echo showed an ejection fraction of 65-70%. She was seen in office on 08/06/2021 and suspected of having some brief PAF. She has some lower extremity edema and was taking furosemide 20 mg daily. The patient felt that she was in AFib a lot this week but since she had a stress test scheduled for today so she did not call about it. If when she did come in, she was in AFib RVR, heart rate 180. Throughout the day she has been given doses of diltiazem and her diltiazem drip have been increased to 20 milligrams/hour. She was given 1 bolus of amiodarone. I have also given her some doses of Lopressor. However she has had progressive shortness of breath and her heart rate is still running in the 120s-140. O2 sat is 88%. Review of Systems Constitutional: Constitutional:
[2021-08-13] MEDS: FUROSEMIDE INJ 40 MG/4 ML VIAL IV PUSH (21:01)
[2021-08-13] MEDS: AMIODARONE 360 MG/D5W 200 ML 360 MG/200 ML BAG 33.33 MG IV CONT (21:12)
[2021-08-13] MEDS: dexmedeTOMIDine 400 MCG/100 ML 400 MCG/100 ML BAG IV CONT (22:04)
--- NOTE | 2021-08-13 22:30 | PC.NURSE ---
Patient coughed up thick red tinged sputum into a kleenex. Gave patient specimen cup for next time she coughs up any sputum. Patient was unable to tolerate bipap mask and precedex started. Patient kept taking off bipap mask put back onto her 14 L highflow until Precedex initiated then will retry mask.
[2021-08-14] VITALS (50 sets, daily range): BP systolic 50–154; BP diastolic 32–98; PULSE 91–137; RESP 15–33; TEMP 36.2–37.7; O2SAT 92–100; BMI 32.8
[2021-08-14] MEDS: AMIODARONE 360 MG/D5W 200 ML 360 MG/200 ML BAG 16.67 MG IV CONT ×4 (02:36→23:00)
[2021-08-14 05:14] LABS: NT Pro B Type Natriuretic Pept 2550 pg/mL (5-100)
[2021-08-14 05:36] LABS: Alanine Aminotransferase 24 U/L (4-35); Albumin Level 3.5 g/dL (3.5-5.1); Alkaline Phosphatase 70 U/L (38-126); Aspartate Amino Transferase 37 U/L (14-36); Bilirubin,Total 0.5 mg/dL (0.2-1.3); Blood Urea Nitrogen 19 mg/dL (7-17); Calcium 9.3 mg/dL (8.4-10.2); Carbon Dioxide > 40 mmol/L (22-30); Chloride 90 mmol/L (98-107); Estimated CRCL calculation 49 ml/min; Estimated Glomerular Filt Rate 50; Glucose 149 mg/dL (65-110); Magnesium 1.9 mg/dL (1.6-2.3); Sodium 137 mmol/L (137-145)
[2021-08-14 05:42] LABS: Alveolar/Arterial O2 Gradient 258.2 mmHg; Base Excess ABG 9.5 mEq/l (+/-2.0); Fractional Inspired Oxygen 60 %; HCO3 ABG 38.5 mEq/l (22.0-26.0); Oxygen Content ABG 15.9 %vol (16.0-22.0); Oxygen Saturation ABG 94.7 % (95.0-100.0); Oxyhemoglobin 94.7 % THb (90.0-100.0); PO2 ABG 83.3 mmHg (80.0-100.0); PO2 FiO2 Ratio Arterial Blood 1.39 %; Total Hemoglobin 11.9 g/dL (12.0-18.0); pH ABG 7.308 (7.350-7.450)
[2021-08-14 05:43] LABS: PCO2 ABG 78.5 mmHg (35.0-45.0)
[2021-08-14 05:44] LABS: Device NON-INVASIVE VENT; Non-Invasive Expiratory Pressure 7 CMH2O; Non-Invasive Inspiratory Pressure 14 CMH2O; Non-Invasive Vent Rate 4 /MIN; Site Drawn RIGHT BRACHIAL
[2021-08-14] MEDS: dexmedeTOMIDine 400 MCG/100 ML 400 MCG/100 ML BAG 11.76 MCG IV CONT (07:47)
--- NOTE | 2021-08-14 09:18 | PM.CNPUL ---
Assessment and Plan Assessment and plan (1) Acute and chronic respiratory failure, unspecified whether with hypoxia or hypercapnia: Code(s): J96.20 - Acute and chronic respiratory failure, unspecified whether with hypoxia or hypercapnia Status: Acute Assessment and Plan: 65-year-old woman with a history of right upper lobe lung cancer status post lobectomy in 1994, COPD former tobacco user (on symbicort), fibrotic NSIP dating back at least the first CT scan in our system from 12/15/13 on prednisone 10 mg PO Q day (FEV1 38% predicted on 06/26/21, TLC 48% on 06/10/2020), rheumatoid arthritis diagnosed approximately 2 years ago on methotrexate (RF 115 on 06/25/21), COVID pneumonia 12/08/2020 with worsening PATHAK and hypoxia since then, NORAH off CPAP since COVID in 12/08/20 and recently referred to [facility] [place] for BiPAP, Stage IB squamous cell carcinoma diagnosed 05/18/2021 status post radiation therapy 06/23/21 and completed 07/10/2021 as she was not a surgical candidate. She has chronic hypoxemic respiratory failure (rest 2 L, 15 L with ambulation on 06/26/21) and chronic hypercarbic respiratory failure with ABG 7.39/61/47 on 06/26/21 (awaiting BiPAP set up), AFib with rapid ventricular response admitted to [facility] 07/23/2021 to 07/25/21 requiring dilt drip and on apixaban as an outpatient. Pulmonary hypertension on echocardiogram from 07/24/2021 with an estimated pulmonary arterial systolic pressure 58 with mildly enlarged right ventricle and moderately enlarged right atrium and moderate tricuspid regurgitation. patient is followed by Pulmonary at [facility] in the interstitial Lung Disease Clinic with Dr. Niru Collins, radiation oncology at [facility] with Dr. Karen Torres, rheumatology at [facility] [place] with Dr. Noonan. patient was followed in the Pulmonary Clinic in [facility] in last seen on 01/07/2021. Currently patient is in acute on chronic respiratory failure with hypoxia and hypercarbia with the above-mentioned chronic problems and now with worsening shortness of breath, atrial fibrillation with RVR and worsening infiltrates in the left upper lobe and left lower lobe with a normal white blood cell count and no fever. Her BNP is 2550. At this time is difficult to say if her respiratory failure has provoked her AFib with RVR or if her Afib with RVR has worsened her respiratory system. It is unclear how long she was in AFib with RVR. Ventilator management per real estate teacher. Afib/RVR management per cardiology. Acutely she failed IV dilt and metoprolol and was started on amiodarone and agree with attempting to avoid this medication correction given her lung diseases. At this time I agree with broad-spectrum antibiotics including cefepime, vanco and levaquin. Blood and sputum cultures. COVID RT-PCR. Flu swab. Patient had radiation therapy to the left lung from 06/23/21 to 07/10/2021 and radiation pneumonitis is a possibility. Solumedrol 60 mg Q day for now. Patient on methotrexate which can cause lung toxicity and we will hold at this time. Given the complexity of her interstitial lung disease and now respiratory failure recommend transferring to [facility]. Discussed with real estate teacher. Inpatient Pulmonary Services will resume on 08/17. Call with questions. History of Present Illness History of Present Illness Consult date: 08/14/21 Requesting physician: Alek Chapa MD Reason for consult: hypoxemia Chief complaint: AFIB and RVR Narrative: 08/14/2021: This is a new pulmonary consult for respiratory failure requiring mechanical ventilation 65-year-old woman with a history of right upper lobe lung cancer status post lobectomy in 1994, COPD former tobacco user (on symbicort), fibrotic NSIP dating back at least the first CT scan in our system from 12/15/13 on prednisone 10 mg PO Q day (FEV1 38% predicted on 06/26/21, TLC 48% on 06/10/2020), rheumatoid arthritis diagnose
[2021-08-14] MEDS: LIDOCAINE HCL 1% PF INJ 5 ML VIAL INFILTRATE (10:00)
[2021-08-14 10:22] LABS: EDCOVIDSCREEN Positive (Negative)
[2021-08-14] MEDS: DEXTROSE 50% 25 GM/50 ML SYRINGE IV PUSH (10:41)
[2021-08-14] MEDS: SODIUM CHLORIDE 0.9% IV 1,000 ML 999 ML IV CONT (10:41)
[2021-08-14] MEDS: MINERAL OIL/WHITE PETROLATUM OINTMENT 1 APPLIC EACH EYE ×2 (10:42→21:07)
[2021-08-14] MEDS: SODIUM POLYSTYRENE SULFONONATE 15 GM/60 ML BTL 30 GM PO (10:42)
[2021-08-14] MEDS: methylPREDNISolone SOD SUCC 125 MG VIAL 60 MG IV PUSH (10:42)
[2021-08-14] MEDS: SODIUM CHLORIDE 0.9% IV 1,000 ML 100 ML IV CONT (10:42)
--- NOTE | 2021-08-14 10:42 | P.PCNBED_ITS ---
Procedures Intubation Intubation Date: 08/14/21 Intubation Time: 08:00 Consent: Verbal consent was obtained from patient who was in respiratory failure and on BiPAP A pre-procedural Time-Out was completed immediately before starting the proce dure and confirmed: Patient Identification, Site, Procedure, Patient Position and the Availability of Requisite Equipment: Yes Sedative: other (Propofol 80 mg) Laryngoscope: fiber optic video scope Assist device used: fiber optic device ET tube size: 8 Tube secured depth (cm): 24 Tube secured location: lips Tube placement confirmation: visualized tube passing through cords, equal breath sounds bilaterally, no breath sounds over epigastrium and confirmation by capnometry Patient tolerated procedure: well Intubation complications: none Additional comments: Patient was given 4 mg of Versed prior to the procedure for anxiety
[2021-08-14] MEDS: INSULIN HUMAN REGULAR (*BKC) 100 UNITS/ML 10 UNITS IV PUSH (10:43)
[2021-08-14] MEDS: ENOXAPARIN 100 MG/ML SYRINGE 90 MG SUB-Q ×2 (10:44→21:08)
[2021-08-14] MEDS: PANTOPRAZOLE SODIUM IV 40 MG VIAL IV PUSH (10:44)
--- NOTE | 2021-08-14 10:50 | WPDCNINT ---
Assessment and Plan Assessment and plan (1) Acute on chronic respiratory failure with hypoxia and hypercapnia: Code(s): J96.21 - Acute and chronic respiratory failure with hypoxia; J96.22 - Acute and chronic respiratory failure with hypercapnia Status: Acute Assessment and Plan: Patient has chronic respiratory failure with hypoxia and hypercarbia with complicated long history Right upper lobe lung cancer status post lobectomy in 1994, COPD former tobacco user (on symbicort), fibrotic NSIP dating back at least the first CT scan in our system from 12/15/13 on prednisone 10 mg PO Q day, severe restrictive lung disease (FEV1 38% predicted on 06/26/21, TLC 48% on 06/10/2020), rheumatoid arthritis diagnosed approximately 2 years ago on methotrexate (RF 115 on 06/25/21), COVID pneumonia 12/08/2020 with worsening PATHAK and hypoxia since then, NORAH off CPAP since COVID in 12/08/20 and recently referred to [facility] for BiPAP, Stage IB squamous cell carcinoma diagnosed 05/18/2021 status post radiation therapy 06/23/21 and completed 07/10/2021 as she was not a surgical candidate. She has chronic hypoxemic respiratory failure (rest 2 L, 15 L with ambulation on 06/26/21) and chronic hypercarbic respiratory failure This acute exacerbation is likely possibly multifactorial as this could be infectious pneumonia, worsening of her NSIP or radiation pneumonitis. Patient also tested positive for COVID although her CT is not classical for COVID pneumonia. She also has pulmonary hypertension and has congestive heart failure Patient intubated this morning placed on mechanical ventilation after failure of BiPAP therapy Start Solu-Medrol 60 mg IV q.day Antibiotic coverage was expanded from cefepime by adding vancomycin and Levaquin Bactrim double strength daily added for PCP prophylaxis Remdesivir added for COVID-19 pneumonia Chest x-ray and CT scan review ABG is pending (2) Hypotension: Code(s): I95.9 - Hypotension, unspecified Status: Acute Assessment and Plan: Patient became hypotensive post intubation. Hypovolemia versus sedation versus sepsis Patient is getting 2 L IV fluid bolus and then will be maintained on conservative amount of IV fluids Patient was started IV Geovanny-Synephrine infusion for blood pressure support (3) Atrial fibrillation with rapid ventricular response: Code(s): I48.91 - Unspecified atrial fibrillation Status: Acute Assessment and Plan: Difficult to control ventricular rate overnight likely secondary to respiratory failure Patient was initially started on Cardizem and later switched to amiodarone by Cardiology Continue amiodarone infusion Patient is on Eliquis which will be switched to Lovenox subQ at this time (4) COVID-19: Onset Date: 11/2020 Code(s): U07.1 - COVID-19 Status: Acute Assessment and Plan: Patient had COVID pneumonia in November of this year. She has not been vaccinated Patient's rapid antigen test done this morning was positive for COVID She does have immunosuppression and may have a recurrent infection although her CT did not appear classical for COVID-19 pneumonia Patient is already on a Solu-Medrol She will be started on Remdesivir I will check inflammatory markers Patient will be placed in isolation PCR is pending (5) Interstitial lung disease: Code(s): J84.9 - Interstitial pulmonary disease, unspecified Status: Acute Assessment and Plan: See above (6) Squamous cell carcinoma of lung: Code(s): C34.90 - Malignant neoplasm of unspecified part of unspecified bronchus or lung Status: Acute (7) Rheumatoid arthritis: Code(s): M06.9 - Rheumatoid arthritis, unspecified Status: Acute (8) Radiation pneumonitis: Code(s): J70.0 - Acute pulmonary manifestations due to radiation Status: Acute (9) Pneumonia: Code(s): J18.9 - Pneumonia, unspecified organism Status: Ac
[2021-08-14] MEDS: PROPOFOL IV EMULSION 100 ML 8.06 MG IV CONT ×2 (11:12→16:36)
[2021-08-14 11:15] LABS: INR 1.5; Prothrombin Time 17.9 Seconds (11.1-14.7)
[2021-08-14 11:18] LABS: Influenza Control Positive
--- NOTE | 2021-08-14 11:31 | PM.EVENT ---
Event Note Event Note Event Note: Spoke to cough ICU triage physician at [facility] Dr. Simon. They will accept the patient and place patient on wait list and call back once bed is available. Additional critical care time spent in coordinating care and discussing with physician from tertiary care center 15 minute
[2021-08-14 11:36] LABS: CRP 7.4 mg/dL (<1.0); Lactate Dehydrogenase 424 U/L (313-618)
[2021-08-14 11:46] LABS: Alveolar/Arterial O2 Gradient 471.1 mmHg; Base Excess ABG 3.2 mEq/l (+/-2.0); Fractional Inspired Oxygen 100 %; HCO3 ABG 31.2 mEq/l (22.0-26.0); Oxygen Content ABG 15.9 %vol (16.0-22.0); PO2 ABG 176.2 mmHg (80.0-100.0); PO2 FiO2 Ratio Arterial Blood 1.76 %; Total Hemoglobin 11.3 g/dL (12.0-18.0)
[2021-08-14 11:48] LABS: pH ABG 7.294 (7.350-7.450)
[2021-08-14 11:49] LABS: Arterial Blood Gas Ventilator rate 20 /MIN; Device VENTILATOR; Modified Allen's Test Pass; PCO2 ABG 65.7 mmHg (35.0-45.0); Site Drawn RIGHT RADIAL
[2021-08-14 11:50] LABS: Arterial Blood Gas PEEP 8 cmH2O; Arterial Blood Gas Tidal Volume 400 ml; Arterial Blood Gas Vent Mode CMV
[2021-08-14] MEDS: REMDESIVIR 200 MG/NS 250 ML 200 MG/250 ML BAG 250 MG IVPB (11:54)
--- NOTE | 2021-08-14 11:58 | PM.PNCARD ---
Progress Note: A&P Additional Plan 65-year-old lady with: AFib with RVR which almost certainly is related to chronic lung disease as her right side is dilated and dysfunctional. I will make an attempt to restore sinus rhythm electrically since she has now been intubated sedated in the ICU. This may or may not work but if she can be restored to sinus rhythm it would likely help her hemodynamics and management. Discuss this with her daughter on the phone to obtain consent. She understands and is agreeable. Denton Boothe MD [facility] Subjective Date/time seen: Date of service: 08/14/21 11:58 Interval history: Follow-up visit in this 65-year-old woman with: Atrial fibrillation with rapid ventricular response. Consultation yesterday by Dr. Herrera. The patient's AFib is almost certainly the result of her chronic lung disease and respiratory failure. With intubation earlier this morning in the ICU her heart rate is as expected much better although she has persistent atrial fibrillation. Since she has been treated with intravenous amiodarone and is chronically anticoagulated with apixaban an attempt at restoring sinus rhythm would seem to be reasonable. Exam Const: Other: Sedated patient in the ICU on the ventilator. HENMT: Mouth: Yes moist mucous membranes Eyes: Sclera: sclerae normal Pupils: Equal, round and reactive pupils present Neck: Neck: supple and no JVD Resp: Other: Coarse BS Cardio: Rhythm: abnormal rhythm irregularly irregular GI: GI Palp: Yes Soft to palpation Auscultation: normal bowel sounds Objective Data Vital Signs Vital Signs: Vital Signs - 24 hr 08/13/21 12:04 08/13/21 12:38 08/13/21 12:44 Temperature Pulse Rate 174 H 179 H 169 H Respiratory Rate 30 H 25 H Blood Pressure 148/86 H 113/82 Pulse Oximetry 08/13/21 12:52 08/13/21 13:02 08/13/21 13:21 Temperature Pulse Rate 158 H 162 H 167 H Respiratory Rate 26 H 24 H 23 H Blood Pressure Pulse Oximetry 88 L 08/13/21 13:39 08/13/21 13:49 08/13/21 14:00 Temperature Pulse Rate 163 H 174 H 178 H Respiratory Rate 17 26 H 24 H Blood Pressure Pulse Oximetry 85 L 85 L 08/13/21 14:01 08/13/21 14:15 08/13/21 14:47 Temperature Pulse Rate 160 H 174 H 179 H Respiratory Rate 23 H 28 H Blood Pressure 133/90 130/83 Pulse Oximetry 85 L 08/13/21 14:49 08/13/21 14:50 08/13/21 15:01 Temperature Pulse Rate 179 H 178 H 147 H Respiratory Rate 23 H 31 H Blood Pressure 130/83 114/73 Pulse Oximetry 93 08/13/21 15:11 08/13/21 15:14 08/13/21 15:15 Temperature Pulse Rate 159 H 145 H 147 H Respiratory Rate 30 H 24 H 25 H Blood Pressure 125/86 Pulse Oximetry 90 87 L 88 L 08/13/21 16:27 08/13/21 16:28 08/13/21 16:36 Temperature Pulse Rate 164 H Respiratory Rate 21 H Blood Pressure Pulse Oximetry 91 77 L 93 08/13/21 16:40 08/13/21 17:00 08/13/21 17:12 Temperature Pulse Rate 152 H 160 H Respiratory Rate 24 H Blood Pressure Pulse Oximetry 93 99 08/13/21 17:59 08/13/21 18:00 08/13/21 18:54 Temperature Pulse Rate 162 H 145 H 167 H Respiratory Rate 26 H Blood Pressure 140/88 Pulse Oximetry 95 08/13/21 18:57 08/13/21 19:35 08/13/21 20:00 Temperature 36.8 C Pulse Rate 165 H 129 H 128 H Respiratory Rate 28 H Blood Pressure 124/94 H 154/101 H Pulse Oximetry 88 L 08/13/21 20:25 08/13/21 21:02 08/13/21 21:06 Temperature Pulse Rate 152 H 125 H Respiratory Rate Blood Pressure 154/97 H 154/97 H Pulse Oximetry 92 08/13/21 21:12 08/13/21 21:13 08/13/21 21:51 Temperature Pulse Rate 122 H 108 H 115 H Respiratory Rate 32 H Blood Pressure 154/97 H 154/97 H Pulse Oximetry 95 08/13/21 22:00 08/13/21 22:04 08/13/21 22:37 Temperature Pulse Rate 125 H 123 H 116 H Respiratory Rate 24 H 30 H Blood Pressure 144/86 H 142/93 H Pulse Oximetry 86 L 08/13/21 22:47 08/13/21 22:48 08/13/21 22:54 Temperat
--- NOTE | 2021-08-14 12:14 | P.PCNCC_ITS ---
Cardiac Cath Procedure Note Date of procedure:: 08/14/21 Performing physician:: Denton Boothe MD Indication:: Persistent atrial fibrillation Brief clinical history:: This is a 65-year-old woman with lung cancer and chronic severe COPD who in the setting of respiratory failure yesterday afternoon was seen to develop AFib with RVR. She was intubated today because of a further respiratory failure. She has been chronically anticoagulated with apixaban and since yesterday loaded with IV amiodarone. I therefore recommended attempt today at restoring sinus rhythm electrically. Procedure Procedure performed:: DC cardioversion Sedation/Medication given:: No additional sedation require Estimated blood loss:: Non Procedure note:: With the patient sedated intubated in the ICU defibrillator p atches were placed in the AP position. The defibrillator was connected and synchronized 200 joules. One 200 joule shock restored normal sinus rhythm. Unfortunately within about 30 seconds she was back in atrial fibrillation. Findings:: As above Conclusion:: 1. Transiently successful DC cardioversion of atrial fib restoring sinus rhythm which did not sustain for more than about 30 seconds and lap single immediately back into atrial fibrillation. This is driven by her chronic lung disease which is obviously not going to be resolved and chronic atrial fibrillation will therefore be expected. Denton Boothe MD [facility]
[2021-08-14] MEDS: CENTRAL LINE FLUSH 10 ML IV PUSH ×2 (14:14→21:08)
--- NOTE | 2021-08-14 14:27 | PM.IMPN ---
Progress Note: A&P Assessment and Plan (1) Acute on chronic respiratory failure with hypoxia and hypercapnia: Code(s): J96.21 - Acute and chronic respiratory failure with hypoxia; J96.22 - Acute and chronic respiratory failure with hypercapnia Status: Acute Assessment and Plan: Patient has chronic respiratory failure with hypoxia and hypercarbia with complicated long pulmonary and cardiac history She has multiple pulmonary issues including Right upper lobe lung cancer status post lobectomy in 1994, COPD former tobacco user (on symbicort), fibrotic NSIP dating back at least the first CT scan in our system from 12/15/13 on prednisone 10 mg PO Q day, severe restrictive lung disease (FEV1 38% predicted on 06/26/21, TLC 48% on 06/10/2020), rheumatoid arthritis diagnosed approximately 2 years ago on methotrexate (RF 115 on 06/25/21), COVID pneumonia 12/08/2020 with worsening PATHAK and hypoxia since then, NORAH off CPAP since COVID in 12/08/20 and recently referred to [facility] [place] for BiPAP, Stage IB squamous cell carcinoma diagnosed 05/18/2021 status post radiation therapy 06/23/21 and completed 07/10/2021 as she was not a surgical candidate. She also has pulmonary hypertension and chronic congestive heart failure. She has chronic hypoxemic respiratory failure (rest 2 L, 15 L with ambulation on 06/26/21) and chronic hypercarbic respiratory failure. This acute exacerbation is likely possibly multifactorial as this could be infectious pneumonia, acute exacerbation and chronic worsening of her NSIP/? UIP or radiation pneumonitis. Her rapid COVID-19 test came back positive. COVID-19 PCR has been sent for confirmation of the diagnosis. Patient intubated and placed on mechanical ventilation after failure of BiPAP therapy on 08/14. Continue current mechanical ventilation settings and employ low total volume strategies as per ARDS net per protocol. Wean FiO2 and PEEP if tolerated. Follow ABG and chest x-ray. Agree with steroid at current dose. Antibiotic coverage was expanded from cefepime by adding vancomycin and Levaquin. Deescalate antibiotics based on further clinical data. Send MRSA screen. Bactrim double strength daily added for PCP prophylaxis. Sent PCP smear for ruling out active PCP pneumonia. Remdesivir added for COVID-19 pneumonia until COVID-19 PCR test come back negative. Continue isolation precaution. (2) Hypotension: Code(s): I95.9 - Hypotension, unspecified Status: Acute Assessment and Plan: Patient became hypotensive post intubation. Hypovolemia versus sedation versus sepsis Patient is getting 2 L IV fluid bolus and then will be maintained on conservative amount of IV fluids Patient was started IV Geovanny-Synephrine infusion for blood pressure support (3) Atrial fibrillation with rapid ventricular response: Code(s): I48.91 - Unspecified atrial fibrillation Status: Acute Assessment and Plan: Difficult to control ventricular rate overnight likely secondary to respiratory failure Patient was initially started on Cardizem and later switched to amiodarone by Cardiology Continue amiodarone infusion Patient is on Eliquis which will be switched to Lovenox subQ at therapeutic dose at this time (4) COVID-19: Onset Date: 11/2020 Code(s): U07.1 - COVID-19 Status: Acute Assessment and Plan: Patient had COVID pneumonia in November of this year. She has not been vaccinated Patient's rapid antigen test done this morning was positive for COVID She does have immunosuppression and may have a recurrent infection. COVID-19 PCR will be sent and followed. She will be started on Remdesivir Continue to trend inflammatory markers. Continue isolation as per protocol (5) Interstitial lung disease: Code(s): J84.9 - Interstitial pulmonary disease, unspecified Status: Acute Assessment and Plan: See above (6) Squamous cell carcinoma of lung: Code(s
[2021-08-14 16:42] LABS: SARS-CoV-2 RNA PCR Negative
[2021-08-14 17:09] LABS: Anion Gap 4 mmol/L (8-16); Blood Urea Nitrogen 22 mg/dL (7-17); Calcium 8.4 mg/dL (8.4-10.2); Carbon Dioxide 36 mmol/L (22-30); Chloride 95 mmol/L (98-107); Estimated CRCL calculation 59 ml/min; Estimated Glomerular Filt Rate > 60; Glucose 82 mg/dL (65-110); Potassium 4.1 mmol/L (3.4-5.0); Sodium 135 mmol/L (137-145)
[2021-08-14] MEDS: PROPOFOL IV EMULSION 100 ML 16.13 MG IV CONT (22:04)
[2021-08-15] VITALS (7 sets, daily range): BP systolic 109–133; BP diastolic 69–97; PULSE 115–138; RESP 25; TEMP 37.6–37.8; O2SAT 96–100
[2021-08-15] MEDS: PROPOFOL IV EMULSION 100 ML 16.13 MG IV CONT ×2 (04:16→08:08)
[2021-08-15 05:14] LABS: Alveolar/Arterial O2 Gradient 186.3 mmHg; Base Excess ABG 5.4 mEq/l (+/-2.0); Carboxyhemoglobin 0.3 % THb (0-2.0); Fractional Inspired Oxygen 40 %; HCO3 ABG 28.1 mEq/l (22.0-26.0); Methemoglobin ABG 0.2 %THb (0-1.5); Oxygen Content ABG 15.9 %vol (16.0-22.0); Oxygen Saturation ABG 93.3 % (95.0-100.0); Oxyhemoglobin 91.3 % THb (90.0-100.0); PCO2 ABG 34.6 mmHg (35.0-45.0); PO2 ABG 59.1 mmHg (80.0-100.0); PO2 FiO2 Ratio Arterial Blood 1.48 %; Reduced Hemoglobin 8.2 %THb (0-5.0); Total Hemoglobin 12.4 g/dL (12.0-18.0)
[2021-08-15 05:16] LABS: Device VENTILATOR; Modified Allen's Test Unable to perform; Site Drawn RIGHT RADIAL; pH ABG 7.527 (7.350-7.450)
[2021-08-15 05:17] LABS: Arterial Blood Gas PEEP 8 cmH2O; Arterial Blood Gas Tidal Volume 400 ml; Arterial Blood Gas Vent Mode CMV; Arterial Blood Gas Ventilator rate 25 /MIN
[2021-08-15] MEDS: CENTRAL LINE FLUSH 10 ML IV PUSH (05:32)
[2021-08-15 05:49] LABS: Basophils Percent Auto 0.6 % (0.2-1.2); Eosinophils Absolute Auto 0.1 K/mm3 (0-0.3); Eosinophils Percent Auto 1.1 % (0-4.4); Hematocrit 29.9 % (37.0-47.0); Hemoglobin 9.4 g/dL (12.0-15.0); Immature Granulocyte Absolute 0.03 K/mm3 (0.00-0.031); Immature Granulocyte Percent A 0.4 % (0-0.5); Lymphocytes Absolute Auto 1.22 K/mm3 (0.9-3.2); Lymphocytes Percent Auto 16.8 % (18.3-44.2); Mean Corpuscular HGB Conc 31.4 g/dl (32-36); Mean Corpuscular Hemoglobin 29.6 pg (26-34); Monocytes Absolute Auto 0.6 K/mm3 (0.1-0.6); Neutrophils Absolute Auto 5.3 K/mm3 (1.3-6.7); Neutrophils Percent Auto 73.1 % (45.5-73.1); Platelet Count Result 215 k/mm3 (150-375); Red Blood Count 3.18 M/mm3 (4.2-5.4); Red Cell Distribution Width 15.2 % (11.5-14.5); White Blood Count 7.3 K/mm3 (4.5-10.0)
[2021-08-15 05:58] LABS: INR 1.4
[2021-08-15 06:08] LABS: Alanine Aminotransferase 18 U/L (4-35); Alkaline Phosphatase 58 U/L (38-126); Anion Gap 3 mmol/L (8-16); Aspartate Amino Transferase 32 U/L (14-36); Bilirubin,Total 0.6 mg/dL (0.2-1.3); Blood Urea Nitrogen 23 mg/dL (7-17); Calcium 8.5 mg/dL (8.4-10.2); Carbon Dioxide 34 mmol/L (22-30); Chloride 95 mmol/L (98-107); Estimated CRCL calculation 67 ml/min; Estimated Glomerular Filt Rate > 60; Glucose 99 mg/dL (65-110); Magnesium 1.7 mg/dL (1.6-2.3); Potassium 3.6 mmol/L (3.4-5.0); Sodium 132 mmol/L (137-145)
--- NOTE | 2021-08-15 08:25 | PC.NURSE ---
Daughter Alejandra updated when patient left for [facility]. [facility] ICU also updated with time of departure.
--- NOTE | 2021-08-15 08:49 | WPDINTPN ---
Progress Note: A&P Assessment and Plan (1) Acute on chronic respiratory failure with hypoxia and hypercapnia: Code(s): J96.21 - Acute and chronic respiratory failure with hypoxia; J96.22 - Acute and chronic respiratory failure with hypercapnia Status: Acute Assessment and Plan: Patient has chronic respiratory failure with hypoxia and hypercarbia with complicated long history Right upper lobe lung cancer status post lobectomy in 1994, COPD former tobacco user (on symbicort), fibrotic NSIP dating back at least the first CT scan in our system from 12/15/13 on prednisone 10 mg PO Q day, severe restrictive lung disease (FEV1 38% predicted on 06/26/21, TLC 48% on 06/10/2020), rheumatoid arthritis diagnosed approximately 2 years ago on methotrexate (RF 115 on 06/25/21), COVID pneumonia 12/08/2020 with worsening PATHAK and hypoxia since then, NORAH off CPAP since COVID in 12/08/20 and recently referred to [facility] for BiPAP, Stage IB squamous cell carcinoma diagnosed 05/18/2021 status post radiation therapy 06/23/21 and completed 07/10/2021 as she was not a surgical candidate. She has chronic hypoxemic respiratory failure (rest 2 L, 15 L with ambulation on 06/26/21) and chronic hypercarbic respiratory failure This acute exacerbation is likely possibly multifactorial as this could be infectious pneumonia, worsening of her NSIP or radiation pneumonitis. Patient also tested positive for COVID although her CT is not classical for COVID pneumonia. She also has pulmonary hypertension and has congestive heart failure Patient intubated 08/14 placed on mechanical ventilation after failure of BiPAP therapy continue Solu-Medrol 60 mg IV q.day Antibiotic coverage was expanded from cefepime by adding vancomycin and Levaquin Bactrim double strength daily added for PCP prophylaxis Chest x-ray and CT scan review ABG reviewed and will decrease respiratory rate to 22 (2) Hypotension: Code(s): I95.9 - Hypotension, unspecified Status: Acute Assessment and Plan: Patient became hypotensive post intubation. Hypovolemia versus sedation versus sepsis Patient is getting 2 L IV fluid bolus and was started IV Geovanny-Synephrine infusion for blood pressure support overnight weaned off (3) Atrial fibrillation with rapid ventricular response: Code(s): I48.91 - Unspecified atrial fibrillation Status: Acute Assessment and Plan: Difficult to control ventricular rate overnight likely secondary to respiratory failure Patient was initially started on Cardizem and later switched to amiodarone by Cardiology Continue amiodarone infusion Patient is on Eliquis which will be switched to Lovenox subQ at this time patient failed electrocardioversion yesterday (4) COVID-19: Onset Date: 11/2020 Code(s): U07.1 - COVID-19 Status: Acute Assessment and Plan: Patient had COVID pneumonia in November of this year. She has not been vaccinated Patient's rapid antigen test done this morning was positive for COVID She does have immunosuppression and may have a recurrent infection although her CT did not appear classical for COVID-19 pneumonia Patient i was started on a Solu-Medrol and Remdesivir patient was placed inisolation her PCR came back negative (5) Interstitial lung disease: Code(s): J84.9 - Interstitial pulmonary disease, unspecified Status: Acute Assessment and Plan: See above (6) Squamous cell carcinoma of lung: Code(s): C34.90 - Malignant neoplasm of unspecified part of unspecified bronchus or lung Status: Acute (7) Rheumatoid arthritis: Code(s): M06.9 - Rheumatoid arthritis, unspecified Status: Acute (8) Radiation pneumonitis: Code(s): J70.0 - Acute pulmonary manifestations due to radiation Status: Acute (9) Pneumonia: Code(s): J18.9 - Pneumonia, unspecified organism Status: Acute (10) Obstructive sleep apnea on CPAP:
--- NOTE | 2021-08-15 11:59 | PM.IMPN ---
Subjective Date/time seen: 08/15/21 11:59 Objective Data Vital Signs Vital Signs: Vital Signs - 24 hr 08/14/21 12:00 08/14/21 14:00 08/14/21 14:13 Temperature 98.8 F 98.2 F Pulse Rate 113 H 118 H 115 H Respiratory Rate 25 H 26 H Blood Pressure 94/65 L 109/86 Pulse Oximetry 99 98 95 08/14/21 15:44 08/14/21 16:00 08/14/21 16:36 Temperature 99.3 F Pulse Rate 115 H 109 H 120 H Respiratory Rate 25 H 25 H 25 H Blood Pressure 111/85 Pulse Oximetry 100 100 08/14/21 17:00 08/14/21 17:15 08/14/21 17:23 Temperature Pulse Rate 125 H 126 H 118 H Respiratory Rate 25 H 25 H 25 H Blood Pressure Pulse Oximetry 08/14/21 17:24 08/14/21 17:36 08/14/21 18:00 Temperature 99.4 F Pulse Rate 114 H 120 H 117 H Respiratory Rate 25 H Blood Pressure 102/81 111/74 Pulse Oximetry 97 100 08/14/21 20:00 08/14/21 20:02 08/14/21 22:00 Temperature 99.1 F 99.8 F H Pulse Rate 123 H 122 H 122 H Respiratory Rate 25 H 25 H Blood Pressure 154/97 H 114/72 Pulse Oximetry 99 99 96 08/14/21 22:04 08/14/21 23:17 08/15/21 00:00 Temperature 99.7 F H Pulse Rate 106 H 124 H 129 H Respiratory Rate 25 H 25 H Blood Pressure 114/95 H Pulse Oximetry 98 98 08/15/21 02:00 08/15/21 02:15 08/15/21 04:00 Temperature 100.1 F H 99.8 F H Pulse Rate 129 H 134 H 132 H Respiratory Rate 25 H 25 H Blood Pressure 109/70 110/69 Pulse Oximetry 97 100 99 08/15/21 04:16 08/15/21 04:48 08/15/21 06:00 Temperature 99.6 F Pulse Rate 135 H 138 H 137 H Respiratory Rate 25 H 25 H Blood Pressure 133/97 H Pulse Oximetry 96 99 Intake/Output Intake/Output: Intake & Output 08/12/21 08/13/21 08/14/21 08/15/21 23:59 23:59 23:59 23:59 Intake Total 650 4960 250 Output Total 500 1025 Balance 650 2445 -185 Meds/Results Radiology Results: ITS Impressions Chest CTA 08/13/21 12:00 IMPRESSION: 1. No pulmonary embolism. 2. Interval progression of chronic interstitial lung disease with usual interstitial pneumonia (UIP) pattern. 3. Status post right upper lobectomy. 4. Moderate cardiac megaly with biatrial enlargement and enlargement of the central pulmonary arteries consistent with pulmonary arterial hypertension. Abdomen X-Ray 08/14/21 09:09 IMPRESSION: 1. Nasogastric tube tip in the stomach. Chest X-Ray 08/15/21 07:50 IMPRESSION: 1. Diffuse lung disease with slight interval improvement, consistent with pneumonia and/or pulmonary edema and/or acute respiratory distress syndrome (ARDS). 2. Left upper extremity PICC now ending with its tip in the right brachiocephalic vein. 3. Cardiomegaly. Labs Labs: Laboratory Results - last 24 hr 08/14/21 08/14/21 08/14/21 09:54 10:56 16:40 WBC RBC Hgb Hct MCV MCH MCHC RDW Plt Count MPV Immature Gran % (Auto) Neut % (Auto) Lymph % (Auto) Price % (Auto) Eos % (Auto) Baso % (Auto) Lymph # (Auto) Price # (Auto) Eos # (Auto) Baso # (Auto) Abs Immat Gran (auto) Absolute Neuts (auto) Absolute Nucleated RBC Nucleated RBC % % Immature Plt Fraction PT INR Puncture Site ABG pH ABG pCO2 ABG pO2 ABG PO2/FiO2 Ratio ABG HCO3 ABG O2 Saturation ABG O2 Content ABG Base Excess A-a Gradient Oxyhemoglobin Carboxyhemoglobin Methemoglobin Reduced Hemoglobin Total Hemoglobin O2 Delivery Device O2 Liters/Min Minute Volume Vent Rate Vent Mode FiO2 Tidal Volume PEEP Peak Inspir Pressure Pressure Support Sodium 135 L Potassium 4.1 Chloride 95 L Carbon Dioxide 36 H Anion Gap 4 L BUN 22 H Creatinine 0.90 Estim Creat Clear Calc 59 Estimated GFR > 60 Glucose 82 Calcium 8.4 Magnesium Ferritin 187.00 Total Bilirubin AST ALT Alkaline Phosphatase Total Protein Albumin SARS-CoV-2 RNA (RT-PCR) Negative
--- NOTE | 2021-08-15 12:57 | PM.TDS ---
Transfer Discharge Sum: Prov Provider Date of admission: 08/13/21 14:27 Primary care physician: Jarrell Alarcon MD Admitting clinician: Oskar Collins MD Consults: 08/13/21 Consult to Physician Routine Comment: Consulting Provider: Alek Chapa Reason for consultation: afib with rvr Has provider been notified: Yes 08/13/21 13:01 Consult to Physician Routine Comment: Consulting Provider: Malina Herrera Reason for consultation: afib with rvr Has provider been notified: Yes 08/14/21 Consult to Physician Routine Comment: Consulting Provider: Denton Crump register repairer/MD group to consult: Pulmonary Reason for consultation: ILD, UIP, ? Radiation Pneumonitis Has provider been notified: Yes DS: Admitting Diagnosis Discharge Date 08/15/21 Admitting Diagnosis (1) Atrial fibrillation with rapid ventricular response: Code(s): I48.91 - Unspecified atrial fibrillation Status: Acute Assessment and Plan: the patient is in AFib RVR with a heart rate in the 160s now. Patient's blood pressure did drop some but responded to a fluid bolus. Patient is typically on metoprolol at home states that she has not taken that last night or today. Last echo was earlier this month. The patient remains on the Cardizem drip. According to the ER physician the heart rate is in the 150s now. The patient had received 2 bolus doses of amiodarone in the emergency room. The patient is currently on apixaban at home. Continue with the apixaban. (2) Acute dyspnea: Code(s): R06.00 - Dyspnea, unspecified Status: Acute Assessment and Plan: Patient has chronic hypoxia and hypercapnia. The patient is on home oxygen which varies on the amount. The patient has had her oxygen up to 10 L per nasal cannula in the past. The patient has a history of having squamous cell lung cancer with a lobectomy to right upper lobe. Last radiation treatment was completed June this year. The patient stated that she becomes more short of breath when she goes into AFib with RVR. (3) Chronic respiratory failure with hypoxia and hypercapnia: Code(s): J96.11 - Chronic respiratory failure with hypoxia; J96.12 - Chronic respiratory failure with hypercapnia Status: Acute Assessment and Plan: Chronic oxygen at home. (4) Obstructive sleep apnea: Code(s): G47.33 - Obstructive sleep apnea (adult) (pediatric) Status: Acute Assessment and Plan: The patient stated that she has not 1 and a CPAP machine in many years. The patient stated that she is scheduled next month for another sleep study. She had a recall on her CPAP machine and no longer has A device. (5) Chronic lung disease: Code(s): J98.4 - Other disorders of lung Status: Acute Assessment and Plan: Chronically on oxygen at home. She is on Singulair as well continue with her home medications. (6) Essential hypertension: Code(s): I10 - Essential (primary) hypertension Status: Acute Assessment and Plan: Since the patient has been on the Cardizem drip her blood pressure has been soft some going to hold the metoprolol at this time. DS: Discharge Diagnosis Discharge Diagnosis (1) Acute on chronic respiratory failure with hypoxia and hypercapnia: Code(s): J96.21 - Acute and chronic respiratory failure with hypoxia; J96.22 - Acute and chronic respiratory failure with hypercapnia Status: Acute Assessment and Plan: Patient has chronic respiratory failure with hypoxia and hypercarbia with complicated long history Right upper lobe lung cancer status post lobectomy in 1994, COPD former tobacco user (on symbicort), fibrotic NSIP dating back at least the first CT scan in our system from 12/15/13 on prednisone 10 mg PO Q day, severe restrictive lung disease (FEV1 38% predicted on 06/26/21, TLC 48% on 06/10/2020), rheumatoid arthritis diagnosed approximately 2 years ago on me
== END 2021-08-15 08:15 | disposition short-term general hospital (02) | DRG 308 ==
LOC: ANHED 13:40 → ANHICU 08-14 09:44
PROVIDERS: Internal Medicine; Internal Medicine Critical Care Medicine; Internal Medicine Pulmonary Disease; Nurse Practitioner; Admitting Provider Internal Medicine; Emergency Provider Emergency Medicine; PCP Family Medicine; Visit Provider Internal Medicine
DX: I48.20 Chronic atrial fibrillation, unspecified (principal); J96.21 Acute and chronic respiratory failure with hypoxia; J96.22 Acute and chronic respiratory failure with hypercapnia; I50.31 Acute diastolic (congestive) heart failure; U07.1 COVID-19; J70.0 Acute pulmonary manifestations due to radiation; G47.33 Obstructive sleep apnea (adult) (pediatric); J98.4 Other disorders of lung; J44.9 Chronic obstructive pulmonary disease, unspecified; I49.5 Sick sinus syndrome; E87.5 Hyperkalemia; I49.3 Ventricular premature depolarization; I27.21 Secondary pulmonary arterial hypertension; I95.81 Postprocedural hypotension; M06.9 Rheumatoid arthritis, unspecified; Z99.81 Dependence on supplemental oxygen; Z87.891 Personal history of nicotine dependence; Z85.118 Personal history of other malignant neoplasm of bronchus and lung; Z86.16 Personal history of COVID-19
CPT/HCPCS: 31500; 36415; 36569; 36600; 71045; 71275; 80048; 80053; 80076; 82375; 82728; 82805; 83050; 83605; 83615; 83735; 83880; 84145; 84443; 84484; 85025; 85380; 85610; 85730; 86140; 87040; 87081; 87426; 87804; 93005; 94002; 94003; 94640; 96361; 96365; 96375; 99285; A9270; C1751; C9113; C9803; G0378; J0282; J0692; J1650; J1815; J1940; J1956; J2250; J2370; J2704; J2930; J3370; J7030; J7040; J7060; J7120; Q9967; U0003; U0005